=== PATIENT | male | born 1950 | race Caucasian/White ===

== ENCOUNTER 2016-11-09 17:49 | Inpatient (IN) | payer OTHER ==
[~2016-11-09] VITALS: Ht 172.7 cm; Wt 78.5 kg
--- NOTE | 2016-11-09 02:10 | NUR ---
ROUNDS PATIENT ASLEEP, NO SOB NOTED, VITALS STABLE. WILL CONTINUE TO MONITOR. Addendum: 11/10/16 at 0640 by Hawa Franklin RN WRONG ENTRY
[~2016-11-09 17:49] MED LIST: ACET-2165 PO; DIVA250T34 PO; DOCU-144 PO; DONE10TA44 PO; FAMO20TA8 PO; FURO-150 PO; LEVE500T13 PO; LISI-600 PO; MAG-55 PO; MEMA10TA12 PO; OMEP20CA10 PO; POTA20PA3 PO; SER25 PO; SERT25TA PO
--- NOTE | 2016-11-09 17:50 | NUR ---
Arrived via BLS ambulance with compliant of congestion. Patient had sylibant wheezes to ascultation. Patient to ER [facility] on EMS gurney due to lack of beds. Side rails up. Assumed care of patient.
--- NOTE | 2016-11-09 18:00 | NUR ---
ER Dr. Newman at bedside examining patient.
--- NOTE | 2016-11-09 18:02 | NUR ---
RT at bedside for breathing Tx.
[2016-11-09 18:03] VITALS: BP 140/80; PULSE 88; RESP 22; TEMP 98.5; O2SAT 96
[2016-11-09] MEDS ORDERED: NACL 0.9% 1,000 ML IV SCH (18:03)
[2016-11-09] MEDS ORDERED: ALBUTEROL SULFATE 0.083% 2.5 MG/3 ML VIAL.NEB INH ONE ×2 (18:03→18:15)
[2016-11-09] MEDS ORDERED: IPRATROPIUM BROM 0.5 MG/2.5 ML VIAL.NEB (ATROVENT) INH ONE ×2 (18:03→18:15)
[2016-11-09] MEDS ORDERED: methylPREDNISolone SOD SUCC/PF 62.5 MG/ML VIAL IVP ONE (18:15)
--- NOTE | 2016-11-09 18:17 | NUR ---
Placed in room 5 . Placed on cardiac exercise physiologist, blood pressure machine and pulse oximeter. To gown for exam. Side rails up. Assumed care of patient.
[2016-11-09 18:46] LABS: BASOPHILS # (AUTO) 0.1 K/uL (0.0-0.2); BASOPHILS % (AUTO) 0.7 % (0.0-2.0); EOSINOPHILS # (AUTO) 0.1 K/uL (0.0-0.4); EOSINOPHILS % (AUTO) 0.4 % (0.0-4.0); HEMATOCRIT 44.8 % (36-54); HEMOGLOBIN 14.7 g/dL (14.0-18.0); LYMPHOCYTES # (AUTO) 4.6 K/uL (1.0-5.5); LYMPHOCYTES % (AUTO) 28.5 % (20.5-51.5); MEAN CORPUSCULAR HEMOGLOBIN 28 pg (27-31); MEAN CORPUSCULAR HGB CONC 33 % (32-36); MEAN CORPUSCULAR VOLUME 87 fL (79.0-98.0); MONOCYTES % (AUTO) 6.4 % (1.7-9.3); NEUTROPHILS # (AUTO) 10.3 K/uL (1.8-7.7); PLATELET COUNT (AUTO) 194 K/uL (130-430); RED BLOOD CELL COUNT(AUTO) 5.18 MIL/uL (4.2-6.2); RED CELL DISTRIBUTION WIDTH 14.1 % (9.0-15.0); WHITE BLOOD COUNT (AUTO) 16.1 K/uL (4.8-10.8)
--- NOTE | 2016-11-09 19:00 | NUR ---
CARE ASSUMED, PT. UNDER NO DISTRESS, EYES CLOSED, NO COMPLAINTS OF PAIN, IV LIVE FLUSHED, VITALS STABLE
[2016-11-09 19:08] LABS: CALCIUM 8.4 mg/dL (8.4-11.0); CREATININE 1.04 mg/dL (0.55-1.30); POTASSIUM 3.7 mmol/L (3.5-5.1)
[2016-11-09 19:13] LABS: ALBUMIN 3.5 g/dL (3.4-4.8); TOTAL BILIRUBIN 0.6 mg/dL (0.0-1.0); TOTAL PROTEIN, SERUM 7.7 g/dL (6.4-8.3)
[2016-11-09] MEDS ORDERED: LEVOFLOXACIN 500 MG/D5W 100 ML IV ONE (19:15)
[2016-11-09 19:21] LABS: BLOOD GAS PH 7.417 (7.350-7.450)
[2016-11-09 19:22] LABS: ABG TOTAL HEMOGLOBIN 14.9 G/dL (12.0-18.0); BLOOD GAS BASE EXCESS -1.5 mmol/L (-3.0-3.0); BLOOD GAS COHb% 0.5 % (0.5-1.5); BLOOD O2Hb% 89.9 % (94.0-97.0)
[2016-11-09 19:23] LABS: BLOOD GAS HHB 9.1 % (0.0-6.0)
--- NOTE | 2016-11-09 19:40 | NUR ---
Patient will be admitted to care of DR. OWEN. Admitted to TELE unit. Will go to room 104. Belongings list completed. Summary report printed. Report given to JULIANA.
--- NOTE | 2016-11-09 20:44 | NUR ---
ADMADMISSION NOTE Received patient from ER via gurney under the care of Dr. Sandhu. Patient admitted with diagnosis of PNA. Patient is awake, alert to his name only, non verbal. Patient oriented to hospital room, call light, toileting, pain managemen but doesn't shows understanding. Requires total care. Call light within reach. All needs will be attended to and medical condition will be monitor closely.
[2016-11-09 20:51] VITALS: BP 117/82; PULSE 104; RESP 20; TEMP 98.2; O2SAT 94
--- NOTE | 2016-11-09 21:15 | NUR ---
NOTES PATIENT SEEN BY DR. HAMILTON WITH NEW ORDERS. WILL CONTINUE TO MONITOR.
[2016-11-09] MEDS ORDERED: DOCUSATE SODIUM 100 MG CAPSULE PO PRN (22:00)
[2016-11-09] MEDS ORDERED: MILK OF MAGNESIA 30 ML UDC PO PRN (22:00)
[2016-11-09] MEDS ORDERED: ACETAMINOPHEN 325 MG TABLET PO PRN (22:00)
[2016-11-09 22:12] VITALS: BP 117/82; PULSE 104
[2016-11-09] MEDS ORDERED: LevALBUTEROL HCL 1.25 MG/0.5 ML *CONC.* VIAL.NEB (XOPENEX CONC.) INH PRN (22:15)
[2016-11-09] MEDS ORDERED: VANCOMYCIN HCL 1 GM/NS PREMIX 250 ML IV ONE (22:45)
[2016-11-09] MEDS ORDERED: PIPERACILLIN/TAZOBACTAM 3.375 GM/VIAL (ZOSYN) IV ONE (22:52)
[2016-11-09] MEDS ORDERED: VANCOMYCIN HCL 1000 MG/VIAL IV ONE (22:56)
[2016-11-09] MEDS: KCL 20 mEq in 0.45% NS 1000 mL 1,000 ML IV SCH (22:58)
[2016-11-10] VITALS (7 sets, daily range): BP systolic 99–126; BP diastolic 49–75; PULSE 62–97; RESP 18–26; TEMP 96.6–98.4; O2SAT 95–99
--- NOTE | 2016-11-10 | NUR ---
PATIENT RESTING: Patient resting quietly. No acute distress noted. Vital signs within normal range.
[2016-11-10] MEDS: methylPREDNISolone SOD SUCC/PF 62.5 MG/ML VIAL IVP SCH ×4 (00:25→17:31)
[2016-11-10] MEDS: LevALBUTEROL HCL 1.25 MG/0.5 ML *CONC.* VIAL.NEB (XOPENEX CONC.) INH SCH ×4 (00:47→19:43)
--- NOTE | 2016-11-10 04:00 | NUR ---
PATIENT RESTING: Patient resting quietly. No acute distress noted. Vital signs within normal range.
[2016-11-10] MEDS: PIPERACILLIN/TAZO 3.375/DEX-IS 50 ML IV SCH ×4 (05:32→17:31)
--- NOTE | 2016-11-10 06:50 | NUR ---
CLOSING NOTES PATIENT AWAKE, VITALS STABLE, NO PAIN AND DISCOMFORT AT THIS TIME. ALL NEEDS ATTENDED TO. WILL ENDORSE TO INCOMING SHIFT NURSE.
[2016-11-10 07:49] LABS: BASOPHILS # (AUTO) 0.1 K/uL (0.0-0.2); BASOPHILS % (AUTO) 0.4 % (0.0-2.0); HEMATOCRIT 41.5 % (36-54); HEMOGLOBIN 13.8 g/dL (14.0-18.0); LYMPHOCYTES # (AUTO) 0.8 K/uL (1.0-5.5); LYMPHOCYTES % (AUTO) 5.8 % (20.5-51.5); MEAN CORPUSCULAR HEMOGLOBIN 30 pg (27-31); MEAN CORPUSCULAR HGB CONC 33 % (32-36); MEAN CORPUSCULAR VOLUME 89 fL (79.0-98.0); MONOCYTES # (AUTO) 0.2 K/uL (0.0-1.0); MONOCYTES % (AUTO) 1.2 % (1.7-9.3); NEUTROPHILS # (AUTO) 11.9 K/uL (1.8-7.7); NEUTROPHILS % (AUTO) 92.6 % (40.0-70.0); PLATELET COUNT (AUTO) 187 K/uL (130-430); RED BLOOD CELL COUNT(AUTO) 4.67 MIL/uL (4.2-6.2); RED CELL DISTRIBUTION WIDTH 14.6 % (9.0-15.0)
[2016-11-10 07:55] LABS: CALCIUM 8.5 mg/dL (8.4-11.0); CREATININE 1.02 mg/dL (0.55-1.30); POTASSIUM 4.6 mmol/L (3.5-5.1)
--- NOTE | 2016-11-10 08:00 | NUR ---
AM SHIFT ASSESSMENT 66YO MALE ADMITTED FOR PNEUMONIA. A/OX1, PATIENT WILL OPEN EYES AND WITHDRAW TO PAIN BUT IS NON-VERBAL BUT WILL GRUNT OR YELL; PATIENT ABLE TO MOVE UPPER EXTREMITIES LIMITED, TO SCRATCH FACE. LUNGS WITH COURSE CRACKLES TO LEFT UPPER LOBE AND WHEEZING THROUGH OUT, ON 2L NC @ 99% AND HHN Q 4HR. CARDIAC RRR, NO MURMURS OR RUBS, NSR ON TELE. BOWEL SOUNDS ACTIVE X4, SOFT AND NON-TENDER ON PALPATION, INCONTINENT OF STOOL. INCONTINENT OF BLADDER WITH YELLOW OUTPUT, NO MARTINEZ IN PLACE. PATIENT HAS BLANCHABLE REDNESS TO BUTTOCKS AND IS DIAPHORETIC THROUGHOUT, SEVERAL BLANKETS REMOVED FROM PATIENT; CLEANSE BUTTOCKS PRN AND APPLY Z-AUNG. PATIENT HAS HX OF SEIZURES WITH SIDE RAIL PADS IN PLACE AND PATIENT IN FRONT OF NURSING STATION. BED IN LOW AND LOCKED POSITION WITH CALL LIGHT IN REACH; PATIENT UNABLE TO RETURN DEMONSTRATE OR VERBALIZE UNDERSTANDING. WILL CONTINUE TO MONITOR.
[2016-11-10] MEDS: FAMOTIDINE 20 MG TABLET PO SCH (08:41)
[2016-11-10] MEDS: LISINOPRIL 20 MG TABLET PO SCH (08:41)
[2016-11-10] MEDS: DIVALPROEX SODIUM 250 MG TABLET(DEPAKOTE) PO SCH ×2 (08:41→22:18)
[2016-11-10] MEDS: levETIRAcetam 500 MG TABLET PO SCH ×2 (08:41→22:17)
[2016-11-10] MEDS: SERTRALINE HCL 50 MG TABLET PO SCH (08:42)
[2016-11-10] MEDS: POTASSIUM CHLORIDE 20 MEQ/PKT PACKET PO SCH (08:42)
[2016-11-10] MEDS: MEMANTINE HCL 5 MG TABLET PO SCH ×2 (08:42→22:18)
--- NOTE | 2016-11-10 09:31 | NUR ---
Nutrition Update Roldan Scale 15 noted. Pt admitted for pneumonia. Diet: pureed BMI: 26.8 kg/m2 RD to follow per nutrition care standards.
--- NOTE | 2016-11-10 10:00 | NUR ---
ROUNDS PATIENT BATHED AND ORAL CARE PROVIDED. PATIENT HAD LARGE LOOSE BM. Z-AUNG APPLIED TO BUTTOCKS AND PATIENT POSITION CHANGED. PATIENT TOLERATED WELL AND IS RESTING COMFORTABLY IN BED AT THIS TIME. WILL CONTINUE TO MONITOR.
[2016-11-10] MEDS: KCL 20 mEq in 0.45% NS 1000 mL 1,000 ML IV SCH (11:37)
--- NOTE | 2016-11-10 12:00 | NUR ---
ROUNDS PATIENT RESTING IN BED WITH NORMAL RISE AND FALL OF CHEST, NO GUARDING OR GRIMACING. ALL SAFETY MEASURES REMAIN IN PLACE. NO SEIZURE ACTIVITY NOTED. WILL CONTINUE TO MONITOR.
[2016-11-10] MEDS: VANCOMYCIN HCL 1,000 MG in NS 250 ML IV SCH (12:31)
--- NOTE | 2016-11-10 14:00 | NUR ---
ROUNDS PATIENT HAD ANOTHER LARGE SOFT BM AND WAS CLEANED, REPOSITIONED. PATIENT TOLERATED WELL. FAMILY AT BEDSIDE, NAD. ALL SAFETY MEASURES REMAIN IN PLACE. WILL CONTINUE TO MONITOR.
--- NOTE | 2016-11-10 16:00 | NUR ---
ROUNDS PATIENT ASLEEP IN BED WITH NORMAL RISE AND FALL OF CHEST, NAD. ALL SAFETY MEASURES REMAIN IN PLACE. WILL CONTINUE TO MONITOR.
--- NOTE | 2016-11-10 18:27 | NUR ---
CLOSING NOTE PATIENT ASLEEP IN BED WITH NORMAL RISE AND FALL OF CHEST, NAD. NO SEIZURE ACTIVITY THROUGHOUT SHIFT. ALL SAFETY MEASURES REMAIN IN PLACE. WILL ENDORSE CARE TO INFORMATICS PHYSICIAN NURSE.
--- NOTE | 2016-11-10 19:45 | NUR ---
ROUNDS PATIENT RESTING COMFORTABLY IN BED, VITALS STABLE, NO SOB NOR PAIN AND DISCOMFORT NOTED. ASSESSMENT DONE AND DOCUMENTED. SEE FLOWSHEET. NEEDS ATTENDED TO. REPOSITIONED AND MADE COMFORTABLE. SAFETY AND FALL PRECAUTION MEASURES IN PLACED. BED IN LOW AND LOCKED POSITION. CALL LIGHT PLACED WITH PATIENT.
--- NOTE | 2016-11-10 21:15 | NUR ---
MEDICATIONS DUE MEDICATIONS GIVEN SCHEDULED, CRUSHED WITH APPLESAUCE, TOLERATED WELL. WILL CONTINUE TO MONITOR.
[2016-11-10] MEDS: ENOXAPARIN SODIUM 40 MG/0.4 ML SYRINGE SUBCUT SCH (22:18)
[2016-11-10] MEDS: DONEPEZIL HCL 5 MG TABLET (ARICEPT) PO SCH (22:18)
--- NOTE | 2016-11-11 | NUR ---
PATIENT RESTING: Patient resting quietly. No acute distress noted. Vital signs within normal range.
[2016-11-11] MEDS: PIPERACILLIN/TAZO 3.375/DEX-IS 50 ML IV SCH ×5 (00:53→23:16)
[2016-11-11] MEDS: methylPREDNISolone SOD SUCC/PF 62.5 MG/ML VIAL IVP SCH ×5 (00:53→23:15)
[2016-11-11] MEDS: LevALBUTEROL HCL 1.25 MG/0.5 ML *CONC.* VIAL.NEB (XOPENEX CONC.) INH SCH ×4 (01:40→19:37)
[2016-11-11] MEDS: VANCOMYCIN HCL 1,000 MG in NS 250 ML IV SCH ×2 (01:45→12:13)
--- NOTE | 2016-11-11 02:15 | NUR ---
ROUNDS PATIENT ASLEEP, NO SOB NOTED, WILL CONTINUE TO MONITOR.
--- NOTE | 2016-11-11 04:10 | NUR ---
PATIENT RESTING: Patient resting quietly. No acute distress noted. Vital signs within normal range.
[2016-11-11 04:28] VITALS: BP 100/50; PULSE 55; RESP 18; TEMP 96; O2SAT 98
[2016-11-11] MEDS: KCL 20 mEq in 0.45% NS 1000 mL 1,000 ML IV SCH ×2 (05:25→14:00)
--- NOTE | 2016-11-11 06:48 | NUR ---
CLOSING NOTES PATIENT AWAKE, VITALS STABLE, NO SIGNS OF ANY PAIN AND DISCOMFORT NOTED. ALL NEEDS ATTENDED TO. SAFETY AND FALL PRECAUTION MEASURES MAINTAINED. WILL ENDORSE TO INCOMING SHIFT NURSE.
--- NOTE | 2016-11-11 07:30 | NUR ---
RN ROUNDS PATIENT RESTING IN BED, AWAKE, ALERT AND ORIENTED X1, REORIENTED TO PLACE, TIME AND EVENT, PATIENT IS NON VERBAL, ASSESSMENT COMPLETE, EDUCATED THE PATIENT PLASTIC PARTS FABRICATOR LIGHT SYSTEM AND TO CALL FOR ANY ASSISTANCE, PATIENT IS UNABLE TO VERBALIZED UNDERSTANDING, NO OTHER NEEDS AT THIS TIME, BED IN LOWEST POSITION, THREE SIDE RAILS UP, ASPIRATION AND SEIZURE PRECAUTIONS IN PLACE, BED CLOSE TO NURSE'S STATION.
[2016-11-11 07:36] LABS: BASOPHILS % (AUTO) 0.2 % (0.0-2.0); HEMATOCRIT 38.4 % (36-54); HEMOGLOBIN 12.8 g/dL (14.0-18.0); LYMPHOCYTES % (AUTO) 7.1 % (20.5-51.5); MEAN CORPUSCULAR HEMOGLOBIN 30 pg (27-31); MEAN CORPUSCULAR HGB CONC 33 % (32-36); MEAN CORPUSCULAR VOLUME 89 fL (79.0-98.0); MONOCYTES # (AUTO) 0.4 K/uL (0.0-1.0); MONOCYTES % (AUTO) 2.7 % (1.7-9.3); NEUTROPHILS # (AUTO) 13.4 K/uL (1.8-7.7); PLATELET COUNT (AUTO) 180 K/uL (130-430); RED BLOOD CELL COUNT(AUTO) 4.33 MIL/uL (4.2-6.2); RED CELL DISTRIBUTION WIDTH 14.4 % (9.0-15.0); WHITE BLOOD COUNT (AUTO) 14.8 K/uL (4.8-10.8)
[2016-11-11 08:01] LABS: CALCIUM 8.4 mg/dL (8.4-11.0); CREATININE 0.95 mg/dL (0.55-1.30); POTASSIUM 4.8 mmol/L (3.5-5.1)
[2016-11-11] MEDS: LISINOPRIL 20 MG TABLET PO SCH (09:00)
[2016-11-11] MEDS: levETIRAcetam 500 MG TABLET PO SCH ×2 (09:35→20:49)
[2016-11-11] MEDS: POTASSIUM CHLORIDE 20 MEQ/PKT PACKET PO SCH (09:36)
[2016-11-11] MEDS: SERTRALINE HCL 50 MG TABLET PO SCH (09:36)
[2016-11-11] MEDS: DIVALPROEX SODIUM 250 MG TABLET(DEPAKOTE) PO SCH ×2 (09:36→20:48)
[2016-11-11] MEDS: FAMOTIDINE 20 MG TABLET PO SCH (09:36)
[2016-11-11] MEDS: MEMANTINE HCL 5 MG TABLET PO SCH ×2 (09:36→20:48)
--- NOTE | 2016-11-11 09:40 | NUR ---
RN ROUNDS PATIENT RESTING IN BED, AWAKE, NO SIGN OF PAIN NOTED AT THIS TIME, CLEANED, TURNED AND REPOSITIONED PATIENT WITH ASSIST FROM DANITZA LOVE AT THIS TIME, PATIENT TOLERATED WELL, EDUCATED THE PATIENT ON MEDICATIONS, PATIENT IS UNABLE TO VERBALIZED UNDERSTANDING, CRUSHED MEDICATIONS AND ADMINISTERED WITH APPLESAUCE, ASPIRATION PRECAUTIONS IN PLACE, PATIENT TOLERATED WELL, NO OTHER NEEDS AT THIS TIME, BED IN LOWEST POSITION, THREE SIDE RAILS UP, ASPIRATION AND SEIZURE PRECAUTIONS IN PLACE, BED CLOSE TO NURSE'S STATION.
[2016-11-11 10:08] VITALS: BP 97/40; PULSE 78; RESP 16; TEMP 98.7; O2SAT 100
[2016-11-11 11:32] VITALS: BP 93/52; PULSE 110; RESP 16; TEMP 97.6; O2SAT 96
[2016-11-11 11:54] VITALS: Ht 172.7 cm; Wt 78.5 kg
--- NOTE | 2016-11-11 12:00 | NUR ---
Roldan Scale Evaluation: Patient evaluated for a low Roldan score of 11. Patient was awake, alert, oriented x 1, and received in a Hill-ROM bed. Patient is unable to turn in bed independently. Skin is fair (-); Buttocks have erythema from IAD. Recommend assist patient with repositioning every two hours with pillow support, and off-load heels and pressure areas with pillows for pressure re-distribution. Perform skin care and monitor skin integrity q shift. Place patient on a low air-loss mattress.
--- NOTE | 2016-11-11 12:23 | NUR ---
RN ROUNDS PATIENT RESTING IN BED, NO SIGNS OF PAIN NOTED, NO SIGNS OF DISTRESS AT THIS TIME, TOLERATED MEDICATION ADMINISTRATION WELL, CALLED PHARMACY REGARDING IV VANCOMYCIN PIGGYBACK LEAKING AT THIS TIME, PHARMACY TO BRING NEW BAG, WILL FOLLOW UP, BED IN LOWEST POSITION, THREE SIDE RAILS UP, FALL, ASPIRATION AND SEIZURE PRECAUTIONS IN PLACE, NAGAT SEROLOGIST AT THE BEDSIDE AT THIS TIME TO FEED PATIENT.
--- NOTE | 2016-11-11 12:41 | NUR ---
NEW BAG VANCOMYCIN RECEIVED FROM PHARMACY AND INFUSING AT THIS TIME, IV SITE IS PATENT WITH NO SIGNS OF INFILTRATION.
--- NOTE | 2016-11-11 14:30 | NUR ---
RN ROUNDS PATIENT RESTING IN BED, NO SIGNS OF PAIN NOTED, ASSISTED NAGAT UX RESEARCH ASSOCIATE TO CLEAN, TURN AND REPOSITION THE PATIENT AT THIS TIME, PATIENT TOLERATED WELL, NO OTHER NEEDS AT THIS TIME ,BED IN LOWEST POSITION, THREE SIDE RAILS UP, BED CLOSE TO NURSE'S STATION, FALL, ASPIRATION AND SEIZURE PRECAUTIONS IN PLACE, WILL CONTINUE TO MONITOR.
[2016-11-11 15:40] VITALS: BP 97/58; PULSE 136; RESP 19; TEMP 97; O2SAT 99
--- NOTE | 2016-11-11 16:52 | NUR ---
Nutrition Note Nutrition Consult received 11/11/16 0839 -- Low Roldan Score of 11. Pt was seen and assessed by RD on 11/11/16. Please refer to initial nutrition assessment under intervention for further details. RD to follow up per nutrition care policy and standards.
--- NOTE | 2016-11-11 17:06 | NUR ---
RN ROUNDS PATIENT RESTING IN BED, AWAKE, ALERT, NO SIGNS OF PAIN OR DISTRESS, TOLERATED MEDICATION ADMINISTRATION WELL, IV ANTIBIOTIC HUNG AND INFUSING WELL, IV SITE IS PATENT WITH NO SIGNS OF INFILTRATION, NO OTHER NEEDS AT THIS TIME, BED IN LOWEST POSITION, THREE SIDE RAILS UP, BED CLOSE TO NURSES'S STATION, FALL AND ASPIRATION PRECAUTIONS IN PLACE.
--- NOTE | 2016-11-11 17:40 | NUR ---
THIN LIQUIDS INFORMED BY DANITZA LOVE THAT WHILE FEEDING THE PATIENT, THE PATIENT HAS COUGHING FITS WITH THIN LIQUIDS, WILL ENDORSE TO NOC SHIFT NURSE TO ENDORSE TO DAY SHIFT NURSE TOMORROW 11/12/16 TO INFORM MAIL LIST PROCESSOR OF THIS SO THAT THE PATIENT'S DIET CAN BE MODIFIED.
--- NOTE | 2016-11-11 18:18 | NUR ---
CLOSING NOTES PATIENT RESTING IN BED ,EYES CLOSED BREATHING IS EVEN AND UNLABORED, NO SIGNS OF DISTRESS, ALL NEEDS MET, WILL ENDORSE REPORT TO NOC SHIFT NURSE, BED IN LOWEST POSITION, THREE SIDE RAILS UP, BED CLOSE TO NURSE'S STATION, FALL, ASPIRATION AND SEIZURE PRECAUTIONS IN PLACE.
[2016-11-11 19:45] VITALS: BP 125/44; PULSE 75; RESP 20; TEMP 98.2; O2SAT 96
--- NOTE | 2016-11-11 19:50 | NUR ---
PM ASSESSMENT PT. AWAKE, NON VERBAL, OPENS EYES SPONTANEOUSLY, VITAL SIGNS STABLE, NO DISTRESS NOTED, NO S/S OF PAIN OR DISCOMFORT, NO SEIZURE ACTIVITY NOTED, PADDED SIDERAILS IN PLACE, REPOSITIONED WITH PILLOW SUPPORT, WILL CONTINUE TO MONITOR.
[2016-11-11] MEDS: ENOXAPARIN SODIUM 40 MG/0.4 ML SYRINGE SUBCUT SCH (20:49)
[2016-11-11] MEDS: DONEPEZIL HCL 5 MG TABLET (ARICEPT) PO SCH (20:49)
--- NOTE | 2016-11-11 21:30 | NUR ---
IV RESTART IV TO LEFT HAND INFILTRATED, IV D'JOSHUA, COVERED WITH GAUZE. NEW IV STARTED TO R. HAND 22G, NOTED WITH GOOD BLOOD RETURN, RECONNECTED TO IVF.
--- NOTE | 2016-11-11 23:30 | NUR ---
RN ROUNDS PT. RESTING QUIETLY, VITAL SIGNS STABLE, NO DISTRESS NOTED, NO SEIZURE ACTIVITY NOTED, REPOSITIONED WITH PILLOW SUPPORT, WILL CONTINUE TO MONITOR.
[2016-11-11 23:59] VITALS: BP 114/68; PULSE 65; RESP 18; TEMP 96.8; O2SAT 97
[2016-11-12] MEDS: VANCOMYCIN HCL 1,000 MG in NS 250 ML IV SCH ×2 (00:34→14:27)
[2016-11-12] MEDS: KCL 20 mEq in 0.45% NS 1000 mL 1,000 ML IV SCH ×2 (00:35→17:17)
[2016-11-12] MEDS: LevALBUTEROL HCL 1.25 MG/0.5 ML *CONC.* VIAL.NEB (XOPENEX CONC.) INH SCH ×3 (01:06→13:28)
--- NOTE | 2016-11-12 01:30 | NUR ---
RN ROUNDS PT. RESTING QUIETLY, VITAL SIGNS STABLE, NO DISTRESS NOTED, NO SEIZURE ACTIVITY NOTED, REPOSITIONED WITH PILLOW SUPPORT, WILL CONTINUE TO MONITOR.
--- NOTE | 2016-11-12 03:30 | NUR ---
RN ROUNDS PT. RESTING QUIETLY, VITAL SIGNS STABLE, NO DISTRESS NOTED, NO SEIZURE ACTIVITY NOTED, REPOSITIONED WITH PILLOW SUPPORT, WILL CONTINUE TO MONITOR.
[2016-11-12 04:05] VITALS: BP 121/59; PULSE 51; RESP 18; TEMP 97; O2SAT 93
[2016-11-12] MEDS: PIPERACILLIN/TAZO 3.375/DEX-IS 50 ML IV SCH ×3 (05:12→17:17)
[2016-11-12] MEDS: methylPREDNISolone SOD SUCC/PF 62.5 MG/ML VIAL IVP SCH ×3 (05:12→17:22)
--- NOTE | 2016-11-12 05:30 | NUR ---
BED BATH PT. HAD A BOWEL MOVEMENT, SERVANDO CARE DONE, BED BATH DONE, NEW GOWN APPLIED, NEW LINEN APPLIED, REPOSITIONED WITH PILLOW SUPPORT.
--- NOTE | 2016-11-12 06:34 | NUR ---
CLOSING NOTES PT. RESTING QUIETLY, VITAL SIGNS STABLE, NO DISTRESS NOTED, NO S/S OF PAIN OR DISCOMFORT. NO SEIZURE ACTIVITY. ALL ANTICIPATED NEEDS MET, KEPT COMFORTABLE.
--- NOTE | 2016-11-12 07:37 | NUR ---
AM ROUNDS Patient received, awake, non verbal able to track with eyes. Respirations even and unlabored. Patient receiving breathing treatment at this time. VSS. No indications of pain at this time. IV site patent intact and infusing fluids as ordered. night monitor in place, rhythm noted. Abdomen soft and rounded. Pedal pulses equal and strong, non pitting edema noted to lower extremities at this time. Oral care and suctioning provided, scant secretions noted. Patient repositioned with pillow support. Plan of care unable to be discussed due to mental status, no family at bedside. Will continue to monitor. Safety and fall precautions in place, side rails upx3, HOB elevated. Seizure precautions in place.
[2016-11-12 07:45] LABS: BASOPHILS % (AUTO) 0.1 % (0.0-2.0); HEMATOCRIT 38.5 % (36-54); HEMOGLOBIN 12.9 g/dL (14.0-18.0); LYMPHOCYTES # (AUTO) 0.9 K/uL (1.0-5.5); LYMPHOCYTES % (AUTO) 7.4 % (20.5-51.5); MEAN CORPUSCULAR HEMOGLOBIN 30 pg (27-31); MEAN CORPUSCULAR HGB CONC 34 % (32-36); MEAN CORPUSCULAR VOLUME 88 fL (79.0-98.0); MONOCYTES # (AUTO) 0.4 K/uL (0.0-1.0); MONOCYTES % (AUTO) 3.1 % (1.7-9.3); NEUTROPHILS # (AUTO) 10.6 K/uL (1.8-7.7); NEUTROPHILS % (AUTO) 89.4 % (40.0-70.0); PLATELET COUNT (AUTO) 183 K/uL (130-430); RED BLOOD CELL COUNT(AUTO) 4.38 MIL/uL (4.2-6.2); RED CELL DISTRIBUTION WIDTH 14.5 % (9.0-15.0); WHITE BLOOD COUNT (AUTO) 11.9 K/uL (4.8-10.8)
[2016-11-12 08:00] VITALS: BP 112/80; PULSE 57; RESP 16; TEMP 97.9; O2SAT 100
[2016-11-12] MEDS: FAMOTIDINE 20 MG TABLET PO SCH (10:14)
[2016-11-12] MEDS: DIVALPROEX SODIUM 250 MG TABLET(DEPAKOTE) PO SCH ×2 (10:15→21:07)
[2016-11-12] MEDS: levETIRAcetam 500 MG TABLET PO SCH ×2 (10:15→21:08)
[2016-11-12] MEDS: MEMANTINE HCL 5 MG TABLET PO SCH ×2 (10:15→21:08)
[2016-11-12] MEDS: SERTRALINE HCL 50 MG TABLET PO SCH (10:16)
[2016-11-12] MEDS: POTASSIUM CHLORIDE 20 MEQ/PKT PACKET PO SCH (10:16)
[2016-11-12] MEDS: LISINOPRIL 20 MG TABLET PO SCH (10:20)
--- NOTE | 2016-11-12 10:41 | NUR ---
ROUNDS Patient repositioned with pillow support. Oral care and bed bath given. No acute distress noted. Will continue to monitor. Safety and fall precautions in place, side rails upx3.
--- NOTE | 2016-11-12 10:56 | NUR ---
Nutrition Note RD was notified by primary RN that pt may require nectar thick liquids as pt seemed to pocket water. RD to modify diet order for trial nectar thick liquid. RD to continue to follow per nutrition care standards.
--- NOTE | 2016-11-12 12:41 | NUR ---
ROUNDS Patient repositioned with pillow support. IV ABX infusing as ordered. No further needs at this time. Will continue to monitor. Safety and fall precautions in place.
[2016-11-12 12:45] VITALS: BP 91/49; PULSE 75; RESP 19; TEMP 98; O2SAT 97
--- NOTE | 2016-11-12 14:24 | NUR ---
ROUNDS Patient receiving breathing treatment at this time, was repositioned with pillow support. No acute distress noted or indication of pain at this time. Safety, fall, and seizure precautions in place. Will continue to monitor.
[2016-11-12 16:29] VITALS: BP 99/52; PULSE 80; RESP 18; TEMP 97.8; O2SAT 98
--- NOTE | 2016-11-12 16:32 | NUR ---
ROUNDS Patient repositioned with pillow support. No acute distress noted. Safety and fall precautions in place, will continue to monitor.
--- NOTE | 2016-11-12 17:20 | NUR ---
pm notes pt awake and alert x1, nonverbal, tracks with eyes. On 2L of O2 via nasal cannula. iv noted on right hand 22g running 1/2 NS with 20 meq KCL running at 75ml/hr. pt made comfortable. pending air mattress. fall risk precautions in place, room across nurses station. Addendum: 11/12/16 at 2245 by Preethi Mayfield RN note was for 1919
--- NOTE | 2016-11-12 18:29 | NUR ---
CLOSING NOTE Patient repositioned with pillow support. Moderate sized bowel movement noted, patient cleaned. IV site patent intact and infusing fluids as ordered. trouble clerk in place. No further needs at this time. All needs met throughout shift, safety fall and seizure precautions in place. Will endorse to next shift.
[2016-11-12] MEDS: DONEPEZIL HCL 5 MG TABLET (ARICEPT) PO SCH (21:08)
[2016-11-12] MEDS: ENOXAPARIN SODIUM 40 MG/0.4 ML SYRINGE SUBCUT SCH (21:08)
--- NOTE | 2016-11-12 22:46 | NUR ---
air mattress pt now resting on air mattress, cleaned after bowel movement. tolerated bed change well. all needs being met.
[2016-11-13] MEDS: PIPERACILLIN/TAZO 3.375/DEX-IS 50 ML IV SCH ×5 (00:07→23:34)
[2016-11-13] MEDS: methylPREDNISolone SOD SUCC/PF 62.5 MG/ML VIAL IVP SCH ×5 (00:07→23:34)
[2016-11-13 00:19] VITALS: BP 101/55; PULSE 76; RESP 17; TEMP 98.7; O2SAT 98
--- NOTE | 2016-11-13 00:30 | NUR ---
WHEEZING NOT PT WHEEZING, RT CALLED FOR BREATHING TREATMENT.
[2016-11-13] MEDS: VANCOMYCIN HCL 1,000 MG in NS 250 ML IV SCH ×2 (00:58→11:21)
[2016-11-13] MEDS: LevALBUTEROL HCL 1.25 MG/0.5 ML *CONC.* VIAL.NEB (XOPENEX CONC.) INH SCH ×5 (02:02→23:37)
--- NOTE | 2016-11-13 03:06 | NUR ---
RESTING PT RESTING, PLACED NASAL CANNULA BACK AFTER PT REMOVED IT. FREQUENT MONITORING BEING DONE. BED IN LOW POSITION. CALL LIGHT WITHIN REACH.
[2016-11-13 04:00] VITALS: BP 103/56; PULSE 72; RESP 18; TEMP 98.6; O2SAT 98
--- NOTE | 2016-11-13 04:23 | NUR ---
BED BATH PT CURRENTLY RECEIVING BED BATH FROM [facility].
--- NOTE | 2016-11-13 06:50 | NUR ---
CLOSING NOTES ALL NEEDS MET THROUGHOUT SHIFT. BREATHING TREATMENTS WERE GIVEN FOR WHEEZING. NO SOB NOTED AT THIS TIME. WILL ENDORSE CARE TO ONCOMING NURSE. BED IN LOW POSITION, CALL LIGHT WITHIN REACH, PT RESTING ON AIR MATTRESS.
--- NOTE | 2016-11-13 07:55 | NUR ---
INITIAL NOTE RECEIVED PT IN BED, NO S/S OF DISTRESS OR SOB NOTED, PT HAS NO FACIAL GRIMACING NOTED FOR PAIN, PT IN STABLE CONDITION, PT ALERT TO NAME ONLY, PROVIDED PT WITH REALITY ORIENTATION. IV CATHETER PATENT, NO SIGNS OF INFECTION OR INFILTRATION NOTED, IV FLUIDS RUNNING ORDERED, FALL, SEIZURE AND ASPIRATION PRECAUTIONS IN PLACE. BED AT LOWEST POSITION, CALL LIGHT WITHIN REACH, WILL CONTINUE TO MONITOR PT FOR ANY CHANGES. PT ON AN AIR MATTRESS. PT HAS OXYGEN 2 LITERS VIA NASAL CANNULA, SATURATION OF 95%. NOTED PT HAS RIGHT ARM DISCOLORATION.
[2016-11-13] MEDS: DIVALPROEX SODIUM 250 MG TABLET(DEPAKOTE) PO SCH ×2 (08:56→21:14)
[2016-11-13] MEDS: levETIRAcetam 500 MG TABLET PO SCH ×2 (08:57→21:14)
[2016-11-13] MEDS: POTASSIUM CHLORIDE 20 MEQ/PKT PACKET PO SCH (08:57)
[2016-11-13] MEDS: FAMOTIDINE 20 MG TABLET PO SCH (08:57)
[2016-11-13] MEDS: MEMANTINE HCL 5 MG TABLET PO SCH ×2 (08:57→21:13)
[2016-11-13] MEDS: LISINOPRIL 20 MG TABLET PO SCH (08:57)
[2016-11-13] MEDS: SERTRALINE HCL 50 MG TABLET PO SCH (09:02)
--- NOTE | 2016-11-13 10:20 | NUR ---
ROUNDS PT IN BED, NO S/S OF DISTRESS OR SOB NOTED, PT HAS NO FACIAL GRIMACING NOTED FOR PAIN AT THIS TIME, PT IN STABLE CONDITION, PT RESTING COMFORTABLY, WILL CONTINUE TO MONITOR PT FOR ANY CHANGES.
[2016-11-13] MEDS: KCL 20 mEq in 0.45% NS 1000 mL 1,000 ML IV SCH (10:27)
--- NOTE | 2016-11-13 11:40 | NUR ---
Wound Consult: Wound consult received for a low Roldan score. Patient evaluated for a low Roldan score of 13. Patient was awake, alert, oriented x 1, and received in a Hill-ROM bed with a low air-loss mattress. Patient is unable to turn in bed independently. Skin is fair (-); Buttocks have erythema from IAD. Recommend assist patient with repositioning every two hours with pillow support, and off-load heels and pressure areas with pillows for pressure re-distribution. Perform skin care and monitor skin integrity q shift. Maintain patient on a low air-loss mattress.
[2016-11-13 12:40] VITALS: BP 106/75; PULSE 53; RESP 19; TEMP 98.9; O2SAT 97
--- NOTE | 2016-11-13 12:55 | NUR ---
ROUNDS PT IN BED, NO S/S OF DISTRESS OR SOB NOTED, PT HAS NO FACIAL GRIMACING NOTED FOR PAIN, PT IN STABLE CONDITION, PT RESTING COMFORTABLY, WILL CONTINUE TO MONITOR PT FOR ANY CHANGES.
[2016-11-13 13:10] VITALS: BP 106/75; PULSE 88
--- NOTE | 2016-11-13 15:00 | NUR ---
MD ROUNDS DR HAMILTON MAKING HIS ROUNDS, AWARE OF PATIENTS CONDITION.
[2016-11-13 17:01] VITALS: BP 126/71; PULSE 100; RESP 18; TEMP 98.9; O2SAT 98
--- NOTE | 2016-11-13 18:05 | NUR ---
Closing Note PT IN BED, NO S/S OF DISTRESS OR SOB NOTED, PT HAS NO FACIAL GRIMACING NOTED FOR PAIN, PT IN STABLE CONDITION, PT ALERT TO NAME ONLY, PROVIDED PT WITH REALITY ORIENTATION. IV CATHETER PATENT, NO SIGNS OF INFECTION OR INFILTRATION NOTED, IV FLUIDS RUNNING ORDERED, FALL, SEIZURE AND ASPIRATION PRECAUTIONS IN PLACE. BED AT LOWEST POSITION, CALL LIGHT WITHIN REACH, WILL ENDORSE CARE OF PT TO INCOMING NURSE. PT ON AN AIR MATTRESS. PT HAS OXYGEN 2 LITERS VIA NASAL CANNULA, SATURATION OF 95%.
[2016-11-13 19:30] VITALS: BP 136/67; PULSE 61; RESP 20; TEMP 98.1; O2SAT 98
--- NOTE | 2016-11-13 19:30 | NUR ---
NOTE RECEIVED PT IN BED, ON AIR MATTRESS. ORIENTED TO NAME ONLY. NONVERBAL, SOB ON EXERTION NOTED. RT CALLED FOR BREATHING TREATMENT. ON O2 AT 2L VIA NASAL CANNULAR. NO ACUTE DISTRESS NOTED. VITAL SIGNS STABLE, AFEBRILE. PT IN STABLE CONDITION. IVF INFUSING WELL ON THE RT HAND, GAUGE 22, PATENT. NO SIGNS OF INFECTION OR INFILTRATION NOTED. FALL, SEIZURE AND ASPIRATION PRECAUTIONS IN PLACE. BED AT LOWEST POSITION, SIDE RAILS UP X3. CALL LIGHT WITHIN REACH. WILL CONTINUE TO MONITOR PT FOR ANY CHANGES. EDUCATED PT ON THE USE OF CALL LIGHT. PT IS UNABLE TO DEMONSTRATE OR VERBAL UNDERSTANDING. CALL LIGHT AND BEDSIDE TABLE WITHIN REACH. WILL CONTINUE TO MONITOR.
[2016-11-13] MEDS: ENOXAPARIN SODIUM 40 MG/0.4 ML SYRINGE SUBCUT SCH (21:13)
[2016-11-13] MEDS: DONEPEZIL HCL 5 MG TABLET (ARICEPT) PO SCH (21:14)
--- NOTE | 2016-11-13 22:00 | NUR ---
NOTES; INCONTINENT OF URINE AND LARGE BROWN LOOSE STOOL, TOTAL BED BATH GIVEN, LINEN CHANGED. REDNESS TO THE SERVANDO AREA NOTED, Z-GUARD SKIN BARRIER CREAM APPLIED. REPOSITIONED, SAFETY MEASURES IN PROGRESS.
--- NOTE | 2016-11-14 | NUR ---
NOTES; PT APPEARED TO BE SLEEPING, EYES CLOSED, RESPIRATION EVEN AND UNLABORED. EASILY AROUSED. NO APPARENT DISTRESS NOTED. SAFETY MEASURES IN PROGRESS. WILL CONTINUE TO MONITOR.
--- NOTE | 2016-11-14 00:35 | NUR ---
[facility]confirmed with [facility], per pharmacy okay to administer, they will make a note so [facility] sees it. Addendum: 11/14/16 at 0040 by Preethi Mayfield RN spoke with marisa
[2016-11-14] MEDS: VANCOMYCIN HCL 1,000 MG in NS 250 ML IV SCH ×2 (00:42→12:28)
[2016-11-14 01:25] VITALS: BP 148/72; PULSE 84; RESP 18; TEMP 100.2; O2SAT 97
--- NOTE | 2016-11-14 02:31 | NUR ---
NOTES; PT APPEARED TO BE SLEEPING, EYES CLOSED, RESPIRATION EVEN AND UNLABORED. EASILY AROUSED. NO APPARENT DISTRESS NOTED. SAFETY MEASURES IN PROGRESS. WILL CONTINUE TO MONITOR.
[2016-11-14] MEDS: KCL 20 mEq in 0.45% NS 1000 mL 1,000 ML IV SCH ×3 (02:43→17:20)
[2016-11-14 04:17] VITALS: BP 142/70; PULSE 82; RESP 18; TEMP 99; O2SAT 96
--- NOTE | 2016-11-14 04:30 | NUR ---
NOTES; PT APPEARED TO BE SLEEPING, EYES CLOSED, RESPIRATION EVEN AND UNLABORED. EASILY AROUSED. NO APPARENT DISTRESS NOTED. SAFETY MEASURES IN PROGRESS. WILL CONTINUE TO MONITOR.
[2016-11-14] MEDS: methylPREDNISolone SOD SUCC/PF 62.5 MG/ML VIAL IVP SCH ×3 (05:23→17:20)
[2016-11-14] MEDS: PIPERACILLIN/TAZO 3.375/DEX-IS 50 ML IV SCH ×3 (05:23→17:20)
[2016-11-14] MEDS: LevALBUTEROL HCL 1.25 MG/0.5 ML *CONC.* VIAL.NEB (XOPENEX CONC.) INH SCH ×4 (06:27→19:56)
--- NOTE | 2016-11-14 06:37 | NUR ---
NOTES; RESTING QUIETLY, EASILY AROUSED. NO S/S OF DISTRESS NOTED. VITAL SIGNS STABLE. ALL NEEDS MET THROUGHOUT SHIFT. FALL, ASPIRATION AND SEIZURE PRECAUTIONS IN PLACE, CALL LIGHT WITHIN REACH. WILL ENDORSE CARE TO ONCOMING NURSE.
--- NOTE | 2016-11-14 07:42 | NUR ---
INITIAL NOTES RECEIVED PATIENT ON BED AWAKE.BREATHING EVEN AND UNLABORED WITH O2 AT 2L/M VIA NASAL CANNULA.NO ACUTE DISTRESS.IVF INFUSING WELL;NO SIGNS AND SYMPOTMS OF INFILTRATION.SAFETY AND FALL PRECAUTIONS IN PLACE.CALL LIGHT WITHIN REACH
[2016-11-14 08:01] VITALS: BP 124/69; PULSE 67; RESP 16; TEMP 98.6; O2SAT 96
[2016-11-14] MEDS: SERTRALINE HCL 50 MG TABLET PO SCH (08:32)
[2016-11-14] MEDS: levETIRAcetam 500 MG TABLET PO SCH ×2 (08:32→21:26)
[2016-11-14] MEDS: POTASSIUM CHLORIDE 20 MEQ/PKT PACKET PO SCH (08:32)
[2016-11-14] MEDS: DIVALPROEX SODIUM 250 MG TABLET(DEPAKOTE) PO SCH ×2 (08:32→21:26)
[2016-11-14] MEDS: FAMOTIDINE 20 MG TABLET PO SCH (08:32)
[2016-11-14] MEDS: MEMANTINE HCL 5 MG TABLET PO SCH ×2 (08:32→21:26)
[2016-11-14] MEDS: LISINOPRIL 20 MG TABLET PO SCH (08:33)
--- NOTE | 2016-11-14 11:01 | NUR ---
NOTES PATIENT ON BED ASLEEP;NO ACUTE DISTRESS
--- NOTE | 2016-11-14 12:29 | NUR ---
CASE MANAGEMENT SPOKE TO DR COPELAND ABOUT DCP. [facility] EVAL ORDERED. CONTACTED FRAN @ [facility] TO EVALUATE PATIENT.
--- NOTE | 2016-11-14 12:45 | NUR ---
NOTES LUNCH SERVED;FED BY PRODUCTION CONTROL MANAGER;WITH GOOD APPETITE
[2016-11-14 12:51] VITALS: BP 118/50; PULSE 50; RESP 19; TEMP 98.7; O2SAT 97
--- NOTE | 2016-11-14 15:29 | NUR ---
NOTES PATIENT ON BED AWAKE.NO ACUTE DISTRESS;REPOSITIONING DONE;TOLERATED WELL
[2016-11-14 16:35] VITALS: BP 121/87; PULSE 67; RESP 18; TEMP 97.9; O2SAT 96
--- NOTE | 2016-11-14 18:05 | NUR ---
NOTES IV SITE CHECKED;WITH SMALL AMOUNT OF BLOOD STAIN ON THE TAPE;NO BLOOD RETURN BUT NO RESISTANCE WHEN FLUSHED WITH NORMAL SALINE.RE-INSERTED ANOTHER LINE TO LEFT HAND;SUCCESSFUL WITH FIRST ATTEMPT;WITH GOOD BLOOD RETURN;NO RESISTANCE WHEN FLUSHED WITH NS;PROCEDURE TOLERATED WELL
--- NOTE | 2016-11-14 18:31 | NUR ---
CLOSING NOTES PATIENT ON BED AWAKE.BREATHING EVEN AND UNLABORED.NO ACUTE DISTRESS.IVF INFUSING WELL;NO SIGNS AND SYMPTOMS OF INFILTRATION.SAFETY AND FALL PRECAUTIONS IN PLACE.CALL LIGHT WITHIN REACH.WILL ENDORSE TO NEXT SHIFT ACCORDINGLY
[2016-11-14 19:25] VITALS: BP 112/61; PULSE 77; RESP 20; TEMP 97.7; O2SAT 96
--- NOTE | 2016-11-14 19:25 | NUR ---
INITIAL NOTE Patient resting on the bed. No acute distress. No SOB. respiration even and unlabored noted. On O2 2L/min via NC. HOB elevated. Skin warm and dry to touch. IV intact to left hand, no redness, no swelling, no drainage. On 1/2NS with KCl 20mEq at 75ml/hr, infusing well. ELVIS mattress in placed. Safety measure maintained. Call light within reached. Padded side rails up, bed in low position. Will continue to monitor.
[2016-11-14] MEDS: DONEPEZIL HCL 5 MG TABLET (ARICEPT) PO SCH (21:25)
[2016-11-14] MEDS: ENOXAPARIN SODIUM 40 MG/0.4 ML SYRINGE SUBCUT SCH (21:25)
--- NOTE | 2016-11-14 21:30 | NUR ---
ROUND Patient resting on the bed with eyes closed. Respiration even and unlabored. No acute distress. Safety measure maintained. Bed in low position, padded side rails up. Call light within reached. Continue to monitor.
--- NOTE | 2016-11-14 23:40 | NUR ---
ROUND Patient resting on the bed with eyes closed. Respiration even and unlabored. No acute distress. Safety measure maintained. Call light within reached. Bed in low position, padded side rails up. Continue to monitor.
[2016-11-15 00:09] VITALS: BP 113/56; PULSE 76; RESP 21; TEMP 96.8; O2SAT 92
[2016-11-15] MEDS: PIPERACILLIN/TAZO 3.375/DEX-IS 50 ML IV SCH ×5 (00:14→23:35)
[2016-11-15] MEDS: methylPREDNISolone SOD SUCC/PF 62.5 MG/ML VIAL IVP SCH ×5 (00:14→23:35)
[2016-11-15] MEDS: VANCOMYCIN HCL 1,000 MG in NS 250 ML IV SCH ×2 (00:50→12:23)
[2016-11-15] MEDS: LevALBUTEROL HCL 1.25 MG/0.5 ML *CONC.* VIAL.NEB (XOPENEX CONC.) INH SCH ×3 (01:53→20:10)
--- NOTE | 2016-11-15 02:01 | NUR ---
ROUND Patient sleeping at this time. No acute distress. Receiving breathing treatment at this time. Respiration even and unlabored noted. Safety measure maintained. Bed in low position, padded side rails up. Call light within reached. Continue to monitor.
--- NOTE | 2016-11-15 03:35 | NUR ---
ROUND Patient resting on the bed. No acute distress. Continue on O2 2L/min via NC. HOB elevated. Safety measure maintained. Call light within reached. Continue to monitor.
[2016-11-15 04:17] VITALS: BP 142/96; PULSE 82; RESP 20; TEMP 97.1; O2SAT 98
--- NOTE | 2016-11-15 06:40 | NUR ---
CLOSING NOTE Patient resting on the bed. No acute distress. No SOB. respiration even and unlabored noted. On O2 2L/min via NC. HOB elevated. IV intact to left hand, no redness, no swelling, no drainage. On 1/2NS with KCl 20mEq at 75ml/hr, infusing well. ELVIS mattress in placed. All needs met. Hourly rounding during shift. Safety measure maintained. Call light within reached. Padded side rails up, bed in low position. Will endorse to morning shift nurse.
[2016-11-15 07:20] LABS: CALCIUM 7.9 mg/dL (8.4-11.0); CREATININE 0.84 mg/dL (0.55-1.30)
--- NOTE | 2016-11-15 07:20 | NUR ---
Rounds Patient is awake no sign of acute distress on RA O2 saturation 94%,denies any pain , head of bed semi fowlers aspiration precaution,safety precaution instructed, needs attended.
[2016-11-15 07:21] LABS: BASOPHILS % (AUTO) 0.1 % (0.0-2.0); HEMATOCRIT 38.9 % (36-54); HEMOGLOBIN 13.1 g/dL (14.0-18.0); LYMPHOCYTES % (AUTO) 9.4 % (20.5-51.5); MEAN CORPUSCULAR HEMOGLOBIN 29 pg (27-31); MEAN CORPUSCULAR HGB CONC 34 % (32-36); MEAN CORPUSCULAR VOLUME 88 fL (79.0-98.0); MONOCYTES # (AUTO) 0.3 K/uL (0.0-1.0); MONOCYTES % (AUTO) 2.9 % (1.7-9.3); NEUTROPHILS # (AUTO) 9.7 K/uL (1.8-7.7); NEUTROPHILS % (AUTO) 87.6 % (40.0-70.0); PLATELET COUNT (AUTO) 187 K/uL (130-430); RED BLOOD CELL COUNT(AUTO) 4.45 MIL/uL (4.2-6.2); RED CELL DISTRIBUTION WIDTH 14.1 % (9.0-15.0)
[2016-11-15] MEDS: POTASSIUM CHLORIDE 20 MEQ/PKT PACKET PO SCH (08:25)
[2016-11-15 08:30] VITALS: BP 103/45; PULSE 94; RESP 18; TEMP 96.8
[2016-11-15] MEDS: levETIRAcetam 500 MG TABLET PO SCH ×2 (08:31→22:09)
[2016-11-15] MEDS: MEMANTINE HCL 5 MG TABLET PO SCH ×2 (08:31→22:09)
[2016-11-15] MEDS: FAMOTIDINE 20 MG TABLET PO SCH (08:32)
[2016-11-15] MEDS: LISINOPRIL 20 MG TABLET PO SCH (08:32)
[2016-11-15] MEDS: DIVALPROEX SODIUM 250 MG TABLET(DEPAKOTE) PO SCH ×2 (08:32→22:10)
[2016-11-15] MEDS: SERTRALINE HCL 50 MG TABLET PO SCH (08:32)
--- NOTE | 2016-11-15 09:00 | NUR ---
Comfort/skin care Complete TSB done , mild redness buttock skin intact , perineal care given kept/dry clean skin cream barrier applied , repositioned.
[2016-11-15 12:28] VITALS: BP 101/50; PULSE 67; RESP 19; TEMP 98.4; O2SAT 100
--- NOTE | 2016-11-15 13:00 | NUR ---
PATIENT RESTING: Patient resting quietly. No acute distress noted. Vital signs within normal range.
[2016-11-15] MEDS: D5/0.45 NS 1,000 ML IV SCH (14:30)
--- NOTE | 2016-11-15 18:00 | NUR ---
Awake no sign of acute respiratory distress, tolerates po well assisted no aspiration , needs attended.
[2016-11-15 18:18] VITALS: BP 130/58; PULSE 65; RESP 21; TEMP 99; O2SAT 97
--- NOTE | 2016-11-15 19:25 | NUR ---
INITIAL NOTE Patient resting on the bed. No acute distress. No SOB. Respiration even and unlabored noted. On O2 2L/min via NC. HOB elevated. Skin warm and dry to touch. IV intact to left hand, no redness, no swelling, no drainage. On D5 1/2NS at 75ml/hr, infusing well. ELVIS mattress in placed. Safety measure maintained. Call light within reached. Padded side rails up, bed in low position. Will continue to monitor.
[2016-11-15] MEDS: ENOXAPARIN SODIUM 40 MG/0.4 ML SYRINGE SUBCUT SCH (22:09)
[2016-11-15] MEDS: DONEPEZIL HCL 5 MG TABLET (ARICEPT) PO SCH (22:10)
--- NOTE | 2016-11-15 23:20 | NUR ---
ROUND Patient resting on the bed with eyes closed. Respiration even and unlabored. No acute distress. Continue ton O2 2L/min via NC. Safety measure maintained. Call light within reached. Bed in low position, padded side rails up. Continue to monitor.
--- NOTE | 2016-11-15 23:30 | NUR ---
IV REINSERTED Noted IV not working well. A now IV inserted to right hand ,22 gauge, attempted x 1 with good blood return. Flushed with NS. Procedure tolerated well. No s/s of pain. No acute distress. Will continue to monitor.
[2016-11-16] MEDS: VANCOMYCIN HCL 1,000 MG in NS 250 ML IV SCH ×2 (00:14→12:46)
--- NOTE | 2016-11-16 01:20 | NUR ---
ROUND Patient sleeping at this time. On O2 2L/min via NC. Respiration even and unlabored. No acute distress. Safety measure maintained. Call light within reached. Bed in low position, padded side rails up. Continue to monitor.
[2016-11-16 01:49] VITALS: BP 116/77; PULSE 53; RESP 17; TEMP 96.9; O2SAT 97
--- NOTE | 2016-11-16 03:15 | NUR ---
ROUND Patient sleeping at this time. No SOB. No acute distress. Continue on O2 2L/min via NC. Safety measure maintained. Call light within reached. Bed in low position, padded side rails up. Continue to monitor.
[2016-11-16 04:26] VITALS: BP 133/85; PULSE 137; RESP 20; TEMP 96.8; O2SAT 94
--- NOTE | 2016-11-16 05:10 | NUR ---
ASSISTED BOOKING MANAGER TO CLEAN PATIENT Patient respiration even and unlabored. No acute distress. Continue on O2 2L/min via NC. Cleaned, turn and repositioned at this time. Safety measure maintained. Call light within reached. Bed in low position, padded side rails up. Continue to monitor.
[2016-11-16] MEDS: PIPERACILLIN/TAZO 3.375/DEX-IS 50 ML IV SCH ×3 (06:11→18:05)
[2016-11-16] MEDS: D5/0.45 NS 1,000 ML IV SCH ×2 (06:11→16:55)
[2016-11-16] MEDS: methylPREDNISolone SOD SUCC/PF 62.5 MG/ML VIAL IVP SCH ×2 (06:11→12:45)
--- NOTE | 2016-11-16 06:35 | NUR ---
CLOSING NOTE Patient resting on the bed. No acute distress. No SOB. Continue on O2 2L/min via NC. HOB elevated. IV intact to right hand, no redness, no swelling, no drainage. On D5 1/2NS at 75ml/hr, infusing well. ELVIS mattress in placed. All needs met. Hourly rounding during shift. Safety measure maintained. Call light within reached. Padded side rails up, bed in low position. Will endorse to morning shift nurse.
[2016-11-16] MEDS: LevALBUTEROL HCL 1.25 MG/0.5 ML *CONC.* VIAL.NEB (XOPENEX CONC.) INH SCH ×3 (07:19→19:38)
--- NOTE | 2016-11-16 08:00 | NUR ---
OPENING NOTE: RECEIVED REPORT FROM NIGHT NURSE. PATIENT IS RESTING COMFORTABLY IN BED. NO S/S OF DISTRESS OR SOB. VITALS SIGNS WNL, ASSESSMENT COMPLETE. PATIENT IS AWAKE BUT CONFUSED. AIR MATTRESS IS ON. O2 NASAL CANNULA ON 2 L IS ON. CALL LIGHT IN REACH, BED IN LOWEST POSITION, AND WILL CONTINUE TO MONITOR.
[2016-11-16 08:15] VITALS: BP 129/78; PULSE 63; RESP 17; TEMP 97.3; O2SAT 96
[2016-11-16] MEDS: DIVALPROEX SODIUM 250 MG TABLET(DEPAKOTE) PO SCH (08:41)
[2016-11-16] MEDS: LISINOPRIL 20 MG TABLET PO SCH (08:41)
[2016-11-16] MEDS: FAMOTIDINE 20 MG TABLET PO SCH (08:41)
[2016-11-16] MEDS: SERTRALINE HCL 50 MG TABLET PO SCH (08:42)
[2016-11-16] MEDS: MEMANTINE HCL 5 MG TABLET PO SCH (08:42)
[2016-11-16] MEDS: levETIRAcetam 500 MG TABLET PO SCH (08:42)
[2016-11-16] MEDS: POTASSIUM CHLORIDE 20 MEQ/PKT PACKET PO SCH (08:44)
--- NOTE | 2016-11-16 10:00 | NUR ---
note: patient is resting comfortably in bed. no s/s of distress or sob. patient is awake but confused. call light in reach, bed in lowest position, and will continue to monitor.
[2016-11-16] MEDS ORDERED: LACTOBACILLUS RHAMNOSUS GG 1 CAP CAPSULE PO ONE (11:00)
[2016-11-16 12:32] VITALS: BP 106/64; PULSE 54; RESP 19; TEMP 98.1; O2SAT 95
--- NOTE | 2016-11-16 12:42 | NUR ---
DISCHARGE PLANNING Spoke with Adalberto Heck patient accepted and will put in request for bed assignment for Adalberto Echols. SUSI Barber made aware. Addendum: 11/16/16 at 1502 by Precious Fernández DP Placed transportation packet in nurses station. Any ambulance can be arranged. Pending discharge order and bed assignment. Addendum: 11/16/16 at 1549 by Precious QUINONES Faxed referral to [facility] for possible discharge back to SNF. Called and spoke with Som in admitting patient assigned to room 216A RN to report , bed available anytime. SUSI Barber made aware. Pending discharge order. Addendum: 11/16/16 at 1650 by Precious Fernández DP ASHLEY Marquis was made aware pending discharge order back to SNF. Kandis will follow up. Addendum: 11/16/16 at 1659 by Precious Fernández DP Per ASHLEY Marquis. Called [facility] spoke with Александр arranged BLS transport pick pulling machine tender 8pm.
[2016-11-16 15:34] VITALS: BP 134/64; PULSE 80; RESP 19; TEMP 98.4; O2SAT 97
[2016-11-16 18:16] VITALS: BP 134/64; PULSE 80; RESP 19; TEMP 98.4; O2SAT 97
--- NOTE | 2016-11-16 18:29 | NUR ---
CLOSING NOTE: PATIENT IS RESTING COMFORTABLY IN BED. NO S/S OF DISTRESS OR SOB. PATIENT IS AWAKE BUT CONFUSED. AWAITING TRANSFER FOR DISCHARGE. REPORT WAS GIVEN TO KING SHREE TIRADO. CALL LIGHT IN REACH, BED IN LOWEST POSITION, AND WILL GIVE REPORT TO NIGHT NURSE.
--- NOTE | 2016-11-16 20:35 | NUR ---
RN Notes: VSS, not in any distress. Patient in stable condition, ID band removed. IV catheter removed, intact and dressing applied, no active bleeding.All belongings sent with patient. Discharge via ambulance.
[2016-11-16] MEDS ORDERED: LACTOBACILLUS RHAMNOSUS GG 1 CAP CAPSULE PO SCH (21:00)
[2016-11-16] MEDS ORDERED: PREDNISONE 20 MG TABLET PO SCH (21:00)
== END 2016-11-16 20:35 | DRG 871 ==
LOC: SED 17:49 → STU 19:40
PROVIDERS: ADMIT Family Medicine; ATTEND Family Medicine
DX: A41.9 Sepsis, unspecified organism (principal); J69.0 Pneumonitis due to inhalation of food and vomit; I10 Essential (primary) hypertension; G40.909 Epilepsy, unspecified, not intractable, without status epilepticus; F79 Unspecified intellectual disabilities; F03.90 Unspecified dementia, unspecified severity, without behavioral disturbance, psychotic disturbance, mood disturbance, and anxiety; K21.9 Gastro-esophageal reflux disease without esophagitis; Z86.73 Personal history of transient ischemic attack (TIA), and cerebral infarction without residual deficits; Z79.899 Other long term (current) drug therapy
CPT/HCPCS: 36415; 36600; 71010; 80048; 80053; 80202-TC; 82803-TC; 82962; 83605; 84484; 85025; 85610-TC; 85730-TC; 87040-TC; 87081; 93005; 94640; 94760; 96361; 96365; 96375; 99291; J1650; J1956; J2543; J2930; J3370; J3480; J7030; J7050

== ENCOUNTER 2018-08-16 21:05 | Inpatient (IN) | payer OTHER, MEDICAID ==
[~2018-08-16] VITALS: Ht 152.4 cm; Wt 70.8 kg
[2018-08-16 21:05] VITALS: BP_SYST 101
[~2018-08-16 21:05] MED LIST changes: -LEVE500T13 PO; +LEVE500T9 PO; +MEMA10TA PO; -MEMA10TA12 PO
--- NOTE | 2018-08-16 21:05 | NUR ---
ER at bedside examining patient.
--- NOTE | 2018-08-16 21:05 | NUR ---
Placed in room 2 . Placed on bus driver/monitor, blood pressure machine and pulse oximeter. To gown for exam. Side rails up. Report given to Laureen.
--- NOTE | 2018-08-16 21:08 | NUR ---
Patient brought in by ambulance BLS, from [facility] for complaint of abnormal labs WBC 12.6, BUN 11.0, and Creatinine 0.73. Per report, patient was sent by MD Sandhu for further eval. Patient is non-verbal. VSS. No acute distress noted.
[2018-08-16] MEDS ORDERED: NACL 0.9% 1,000 ML IV ONE (21:10)
[2018-08-16] MEDS ORDERED: NS 1000 ML IV.SOLN IV ONE (21:15)
[2018-08-16] MEDS ORDERED: cefTRIAXone 1 GM IVPB PREMIX 50 ML IV ONE (21:15)
[2018-08-16] MEDS ORDERED: KETOROLAC TROMETHAMINE 30 MG VIAL IVP ONE (21:15)
--- NOTE | 2018-08-16 21:30 | NUR ---
Patient is unable to participate in end of life decisions making at this time. Per copy of POLST, code status is FULL CODE. Copy of POLST placed in chart.
--- NOTE | 2018-08-16 22:11 | NUR ---
# 20 gauge angiocath placed to right hand. Use of asceptic technique. Opsite placed over site. Blood return noted. Blood for lab drawn from site. Flushed with 10 cc of normal saline. No evidence of infiltration noted. Patient tolerated well.
--- NOTE | 2018-08-16 22:20 | NUR ---
#16 FR Greco catheter with use of sterile technique. Immediate return of 10 ml yellow clody urine noted. Bedside drainage bag placed below level of bladder. Urine sample collected and sent to lab. Pt tolerated procedure well.
--- NOTE | 2018-08-16 22:25 | NUR ---
Medication reconciliation completed with information provided by facility. Any prior medication reconciliation on file was reviewed and corrected.
[2018-08-16] MEDS ORDERED: ACET-2165 PO (22:27)
[2018-08-16] MEDS ORDERED: DOCU250C14 PO (22:27)
[2018-08-16] MEDS ORDERED: MULT1CAP34 PO (22:27)
[2018-08-16] MEDS ORDERED: FAMO40TA71 PO (22:27)
[2018-08-16 22:40] LABS: ANION GAP 4 (5-15); BASOPHILS # (AUTO) 0.3 K/uL (0.0-0.2); BASOPHILS % (AUTO) 1.6 % (0.0-2.0); CHLORIDE 109 mmol/L (98-107); CREATININE 0.84 mg/dL (0.55-1.30); EOSINOPHILS # (AUTO) 0.2 K/uL (0.0-0.4); EOSINOPHILS % (AUTO) 1.3 % (0.0-4.0); GLUCOSE 158 mg/dL (70-99); HEMATOCRIT 45.3 % (36-54); HEMOGLOBIN 14.7 g/dL (14.0-18.0); LYMPHOCYTES # (AUTO) 3.6 K/uL (1.0-5.5); MEAN CORPUSCULAR HEMOGLOBIN 29 pg (27-31); MEAN CORPUSCULAR HGB CONC 32 % (32-36); MEAN CORPUSCULAR VOLUME 90 fL (79.0-98.0); NEUTROPHILS # (AUTO) 11.9 K/uL (1.8-7.7); NEUTROPHILS % (AUTO) 70.1 % (40.0-70.0); PLATELET COUNT (AUTO) 283 K/uL (130-430); POTASSIUM 3.7 mmol/L (3.5-5.1); RED BLOOD CELL COUNT(AUTO) 5.05 MIL/uL (4.2-6.2); RED CELL DISTRIBUTION WIDTH 13.4 % (9.0-15.0); SODIUM SERUM 141 mmol/L (136-145); UREA NITROGEN, BLOOD 26 mg/dL (8-21)
[2018-08-16 22:41] LABS: GFR AFRICAN AMERICAN 117 mL/min (>90)
[2018-08-16 22:45] LABS: ALANINE AMINOTRANSFERASE 47 U/L (12-78); ALBUMIN 2.8 g/dL (3.4-4.8); AMYLASE 101 U/L (0-100); ASPARTATE AMINOTRANSFERASE 15 U/L (10-37); LIPASE 100 U/L (73-393); TOTAL BILIRUBIN 0.7 mg/dL (0.0-1.0)
[2018-08-16 22:47] LABS: ALCOHOL, BLOOD < 3 mg/dL (<10)
[2018-08-16 22:54] LABS: ACETAMINOPHEN < 1 ug/mL (1-30)
[2018-08-16 22:58] LABS: PROTHROMBIN TIME 10.3 SECS (9.5-12.5)
[2018-08-16 22:58] LABS: BILIRUBIN,URINE 1+ (NEGATIVE); BLOOD, URINE 3+ (NEGATIVE); CLARITY/URINE HAZY (CLEAR); COLOR,URINE YELLOW (YELLOW); GLUCOSE,URINE NEGATIVE (NEGATIVE); KETONES,URINE TRACE (NEGATIVE); LEUKOCYTE ESTERASE ,URINE 1+ (NEGATIVE); NITRITE, URINE POSITIVE (NEGATIVE); PH,URINE 8.5 (5.0-8.0); PROTEIN URINE 3+ (NEGATIVE)
[2018-08-16 23:11] LABS: BARBITURATE, URINE NEGATIVE (NEG <=200); BENZODIAZEPINE, URINE NEGATIVE (NEG <=150); CANNABINOID, URINE NEGATIVE (NEG <=50); COCAINE, URINE NEGATIVE (NEG <=150); METHAMPHETAMINES SCREEN,URINE NEGATIVE (NEG <=500); OPIATE, URINE NEGATIVE (NEG <=100); PHENCYCLIDINE SCREEN,URINE NEGATIVE (NEG <=25); UR TRICYCLIC ANTIDEPRESSANTS NEGATIVE (NEG <=300); URINE AMPHETAMINE NEGATIVE (NEG <=500); URINE METHADONE NEGATIVE (NEG <=200); URINE OXYCODONE SCREEN NEGATIVE (NEG <=100); URINE PROPOXYPHENE SCREEN NEGATIVE (NEG <=300)
[2018-08-16 23:17] LABS: BACTERIA,URINE MANY /HPF (None Seen); RBC,URINE 20-50 /HPF (0-3)
--- NOTE | 2018-08-16 23:20 | NUR ---
Patient will be admitted to care of Dr. Sandhu. Admitted to Telemetry unit. Will go to room 104B. Belongings list completed. Summary report printed. Report will be given at bedside.
[2018-08-16 23:33] VITALS: BP_SYST 134
--- NOTE | 2018-08-16 23:33 | NUR ---
Admission Note Received patient from ER with diagnosis of PNA and diverticulitis. Oriented to room, call light, pain management and safety.
--- NOTE | 2018-08-16 23:45 | NUR ---
OPENING NOTES ADMITTED A 68 Y/O MALE FROM [facility] FOR PNEUMONIA AND DIVERTICULITIS. PATIENT NONVERBAL UNABLE TO MAKE NEEDS KNOWN. PRODUCTIVE COUGH NOTED. VITAL SIGNS STABLE. HOB ELEVATED AT 30 DEGREES. SIDE RAILS PADS PLACED FOR SEIZURE PRECAUTION. CALL LIGHT WITHIN EASY REACH. SIDE RAILS UP X3. BED ALARM ON. BED IN LOWEST LOCKED POSITION.
[2018-08-16 23:54] VITALS: BP_SYST 101
[2018-08-17] MEDS ORDERED: metroNIDAZOLE 500 mg/NS 100 ML IV ONE
[2018-08-17] MEDS: KCL 20 mEq in D5/0.45NS 1000mL 1,000 ML IV SCH ×3 (00:11→17:50)
--- NOTE | 2018-08-17 00:16 | NUR ---
IVF/ATB PATIENT STARTED ON IVF ORDERED. DUE ATB INFUSED PER MD ORDERS. IV LINE INTACT AND PATENT ON RT HAND.
[2018-08-17] MEDS ORDERED: metroNIDAZOLE 500 mg/NS 200 ML IV ONE (00:17)
--- NOTE | 2018-08-17 00:17 | NUR ---
Called [facility] about patient's flu shot status. Per [facility], patient has not received flu shot this season. Need to obtain consent from family before administering.
[2018-08-17] MEDS: LevALBUTEROL HCL 1.25 MG/0.5 ML *CONC.* VIAL.NEB (XOPENEX CONC.) INH SCH ×4 (00:41→19:02)
--- NOTE | 2018-08-17 03:37 | NUR ---
ROUNDS PATIENT RESTING IN BED. BREATHING UNLABORED. IVF INFUSING ORDERED. IV LINE INTACT. NO DISTRESS NOTED.
[2018-08-17] MEDS: metroNIDAZOLE 500 mg/NS 100 ML IV SCH ×3 (05:40→22:41)
--- NOTE | 2018-08-17 07:03 | NUR ---
CLOSING NOTES PATIENT RESTING IN BED. BREATHING UNLABORED. IVF INFUSING ORDERED WITH IV LINE INTACT. NEEDS ATTENDED. CALL LIGHT WITH IN REACH. BED ALARM ON. BED IN LOWEST LOCKED POSITION. SIDE RAILS WITH PADS AND UP X3.
--- NOTE | 2018-08-17 07:10 | NUR ---
Opening Note patient resting in bed, eyes closed, breathing unlabored on room air, IV fluids infusing at this time, symmetrical chest expansion, safety precautions in place, room close to station, will continue to monitor
[2018-08-17 07:19] LABS: ALBUMIN 2.3 g/dL (3.4-4.8); CALCIUM 8.3 mg/dL (8.4-11.0); CREATININE 0.76 mg/dL (0.55-1.30); POTASSIUM 3.6 mmol/L (3.5-5.1); TOTAL BILIRUBIN 0.6 mg/dL (0.0-1.0)
[2018-08-17 07:20] LABS: HEMATOCRIT 39.6 % (36-54); HEMOGLOBIN 12.7 g/dL (14.0-18.0); MEAN CORPUSCULAR HEMOGLOBIN 29 pg (27-31); MEAN CORPUSCULAR HGB CONC 32 % (32-36); MEAN CORPUSCULAR VOLUME 89 fL (79.0-98.0); PLATELET COUNT (AUTO) 266 K/uL (130-430); RED BLOOD CELL COUNT(AUTO) 4.44 MIL/uL (4.2-6.2); RED CELL DISTRIBUTION WIDTH 13.3 % (9.0-15.0); WHITE BLOOD COUNT (AUTO) 14.3 K/uL (4.8-10.8)
[2018-08-17 08:30] VITALS: BP_SYST 108
[2018-08-17 09:53] LABS: BAND % (MANUAL) 4 % (0-6)
[2018-08-17 09:54] LABS: ATYPICAL LYMPHOCYTES % 0 % (0-0); BASOPHILS % (MANUAL) 0 % (0-2); EOSINOPHILS % (MANUAL) 1 % (0-7); LYMPHOCYTES % (MANUAL) 19 % (20-46); MONOCYTES % (MANUAL) 8 % (0-11)
--- NOTE | 2018-08-17 10:12 | NUR ---
IV RE-INSERTION: IV disloeged. Restarted on 08/17/18. Successful after 1 attempts. Resumed current IVF of D51/2NS + 20 meQ and regulated @ 75 per hour. Will observe for any signs of infiltration.
[2018-08-17 10:19] VITALS: BP_SYST 108
--- NOTE | 2018-08-17 10:22 | NUR ---
Nutrition Update Roldan Scale 13 noted. Pt admitted for pneumonia, diverticulitis. Diet: full liquid BMI: 30.5 kg/m2 RD to follow per nutrition care standards.
[2018-08-17 12:08] VITALS: BP_SYST 97
--- NOTE | 2018-08-17 12:20 | NUR ---
Patient Assisted with Feeding at this time, tolerating diet well, vials within normal limits, occasional coughing, breathing symmetrical, safety precautions remain in place, room close to station will continue to monitor
--- NOTE | 2018-08-17 14:18 | NUR ---
Patient Had BM semi-solid stool, was cleaned and repositioned, breathing unlabored with symmetrical chest expansion, patient able to make eye-contact but non-verbal, no signs of distress, safety precautions remain in place, room close to station, will continue to monitor
--- NOTE | 2018-08-17 14:52 | NUR ---
WOUND EVALUATION: Wound Consult received from Dr. Sandhu. Thank you, Dr. Sandhu, for the consult. Patient received in a [place] Bed with an Isoflex ELVIS mattress, awake, alert, and oriented. Patient is unable to turn in bed independently. Roldan Score is a 13. Past Medical History: COPD, Hypertension, Epilepsy, Dysphagia, Cerebrovascular Accident, Dementia, Gastroesophageal Reflux Disease. Recent Labs: WBC 14.3, RBC 4.44, hemoglobin 12.7, hematocrit 39.6, chloride 110, BUN 26, creatinine 0.76, serum 8.3, albumin 2.3, PTT 24.9. Microbiology: Blood culture results 2 in progress. Urine culture results in progress. MRSA screen results in progress. Intrinsic factors that delay wound healing: COPD, dysphagia, albumin anemia. Extrinsic factors that delay wound healing: Immobility. Wound Assessment: 1. Left Buttock: Moisture associated reopened scar tissue. Site has 100% red tissue. No odor, no drainage. Periwound and surrounding tissue has scar tissue, dark discolored skin, and dry flaky skin. Site measures 0.5 cm x 1.2 cm (two small areas grouped in measurement). Recommend: Gently cleanse involved area with mild soap and water. Pat dry. Apply moisture barrier cream to site and surrounding tissue. Apply Hydraguard onto any areas of dry, flaky skin. Apply small amount of hydrogel to any open area not covered by moisture barrier cream. Cover with sacral foam dressing. Form site care daily, and as needed for dressing soiling or dislodgment. 2. Anterior Chin: Area of erythema, present on admission. Recommend: No dressing needed. Continue to monitor site for worsening condition. Contact wound care nurse if site opens or drains. 3. Right Lateral Cranial area, posterior to Ear: Dry scabs, present on admission. Site has black scab material. No odor, no drainage. Svetlana-site intact. Recommend: No dressing needed. Continue to monitor site for worsening condition. Contact wound care nurse if site opens or drains. Also recommend: Reposition patient [id number] only every 2 hours with pillow support, and off-load pressure areas with pillows for pressure re-distribution. Offload, elevate and float bilateral heels with one pillow lengthwise under each extremity at all times. Perform skin care and monitor skin integrity Q shift. Use moisture barrier cream on buttocks and other moisture susceptible areas QID and as needed for soiling. Place patient on a low air-loss mattress.
--- NOTE | 2018-08-17 14:59 | NUR ---
Modesta Stark at this time, site remains patent, patient resting in bed, positioned with pillow support, HOB remains elevated, gastelum draining via gravity and in tact, safety precautions remain in place, room close to station, will continue to monitor
[2018-08-17 16:00] VITALS: BP_SYST 119
--- NOTE | 2018-08-17 17:10 | NUR ---
D/C Patient Patient given medication reconciliation form and D/C instructions. Exit Care provided. Patient verbalized understanding. MD discussed with patient the results and treatment provided. Ambulatory with steady gait for discharge to home. Patient in stable condition, ID band removed. IV catheter removed, intact and dressing applied, no active bleeding. Rx of [place] given prior to patient's surgery by Dr. Mayo. Patient educated on pain management. All belongings sent with patient. Addendum: 08/17/18 at 1819 by Lisa Pearson RN Wrong patient, disregard
--- NOTE | 2018-08-17 18:05 | NUR ---
Dr. Sandhu Rounds at this time, informed him about dark colored urine, verbalized understanding, stated will reconcile medications, asked for DVT prophylaxis, stated will place in orders
[2018-08-17] MEDS ORDERED: DOCUSATE SODIUM 100 MG CAPSULE PO SCH (18:15)
[2018-08-17] MEDS ORDERED: DOCUSATE SODIUM 250 MG CAPSULE PO PRN (18:15)
[2018-08-17] MEDS ORDERED: ACETAMINOPHEN 325 MG TABLET PO PRN (18:15)
[2018-08-17] MEDS ORDERED: ACETAMINOPHEN 325 MG TABLET PO SCH (18:15)
--- NOTE | 2018-08-17 18:15 | NUR ---
Patient had BM was cleansed and repositioned with help from Chao LOVE, wound care provided again, no signs of distress, occasional coughing, safety precautions remain in place, room close to nurses' station, will continue to monitor patient
--- NOTE | 2018-08-17 19:15 | NUR ---
Closing Note patient resting in bed, awake and alert, non-verbal, IV fluids infusing at this time, he is positioned with pillow support, HOB elevated, gastelum draining via gravity, safety precautions remain in place, room close to station, endorsed to stock layer nurse
[2018-08-17 20:00] VITALS: BP_SYST 112
--- NOTE | 2018-08-17 20:00 | NUR ---
Initial Notes Received patient resting in bed, awake, alert, confused, nonverbal. Patient appears in no acute distress or pain at this time. Vital signs stable. Breathing is even and unlabored. IV site patent/clean/dry. Greco draining to gravity. Dressings clean/dry/intact, recently changed by prior shift. Repositioned patient for comfort. Needs addressed. Fall precautions in place, will continue to monitor.
[2018-08-17] MEDS: MEMANTINE HCL 5 MG TABLET PO SCH (20:53)
[2018-08-17] MEDS: levETIRAcetam 500 MG TABLET PO SCH (20:53)
[2018-08-17] MEDS: DONEPEZIL HCL 5 MG TABLET (ARICEPT) PO SCH (20:53)
--- NOTE | 2018-08-17 22:00 | NUR ---
Nursing Notes Patient resting in bed, awake, no change in mentation. Patient appears in no acute distress or pain. Breathing is even and unlabored. IV site patent/clean/dry. Greco draining to gravity. Repositioned patient for comfort. Needs addressed. Call light in hand, fall precautions in place.
[2018-08-18] VITALS: BP_SYST 118; BP_SYST 144
--- NOTE | 2018-08-18 | NUR ---
Nursing Notes Patient resting in bed, awake. Patient appears in no acute distress or pain at this time. Breathing is even and unlabored. IV site patent/clean/dry. Greco draining to gravity. Needs addressed. Call light in hand, fall precautions in place.
[2018-08-18] MEDS: LevALBUTEROL HCL 1.25 MG/0.5 ML *CONC.* VIAL.NEB (XOPENEX CONC.) INH SCH ×3 (00:50→19:36)
--- NOTE | 2018-08-18 02:15 | NUR ---
Nursing Notes Patient resting in bed with eyes closed. No distress noted, breathing is even and unlabored. IV site patent/clean/dry. Fall precautions in place, will continue to monitor for changes and safety.
--- NOTE | 2018-08-18 04:43 | NUR ---
Nursing Notes Patient resting in bed with eyes closed, easily aroused, no change in mentation. Patient appears in no acute distress or pain at this time. Breathing is even and unlabored. Hygiene care provided. Dressing remains clean/dry/intact. Repositioned patient for comfort. Needs addressed. Fall precautions in place.
[2018-08-18] MEDS: metroNIDAZOLE 500 mg/NS 100 ML IV SCH ×3 (05:08→22:42)
--- NOTE | 2018-08-18 06:43 | NUR ---
Closing Notes Patient resting in bed with eyes closed, easily aroused, no change to mentation. Patient appears in no acute distress or pain at this time. Breathing is even and unlabored. IV site patent/clean/dry, no S/S infection/infiltration noted. Greco draining yellow urine to gravity. Dressing remains clean/dry/intact. Needs addressed throughout shift. Call light in hand, fall precautions in place. Will continue to monitor for changes and safety, and endorse all patient care/needs to oncoming nurse.
[2018-08-18 06:44] LABS: CALCIUM 8.6 mg/dL (8.4-11.0); CREATININE 0.67 mg/dL (0.55-1.30); PHOSPHORUS 2.7 mg/dL (2.7-4.5); POTASSIUM 4.1 mmol/L (3.5-5.1)
[2018-08-18 07:28] LABS: HEMATOCRIT 40.3 % (36-54); HEMOGLOBIN 12.9 g/dL (14.0-18.0); MEAN CORPUSCULAR HEMOGLOBIN 29 pg (27-31); MEAN CORPUSCULAR HGB CONC 32 % (32-36); MEAN CORPUSCULAR VOLUME 90 fL (79.0-98.0); PLATELET COUNT (AUTO) 267 K/uL (130-430); RED BLOOD CELL COUNT(AUTO) 4.49 MIL/uL (4.2-6.2); RED CELL DISTRIBUTION WIDTH 13.2 % (9.0-15.0); WHITE BLOOD COUNT (AUTO) 10.8 K/uL (4.8-10.8)
[2018-08-18 08:00] VITALS: BP_SYST 106
--- NOTE | 2018-08-18 08:00 | NUR ---
RN OPENING NOTE PATIENT RESTING ON BED, OPEN EYES BUT NON VERBAL. PATIENT SHOWS NO SIGNS OF PAIN ON FLACC SCALE. PATIENT WAS ASSESSED , VITAL SIGNS ARE STABLE. PATIENT HAS A BOWEL MOVEMENT OF LOOSE STOOL. PATIENT WAS CHANGED HIS LINEN WAS CHANGED , PATIENT WAS REPOSITIONED, BED AT LOW POSITION AND BED ALARM IS ON, I'M BEING PRESENT IN THE ROOM ALL THE TIME, SINCE i'M A SITTER FOR ANOTHER PATIENT, SO WILL KEEP CLOSE EYE ON THE PATIENT, WILL CONTINUE TO MONITOR.
[2018-08-18] MEDS: levETIRAcetam 500 MG TABLET PO SCH ×2 (08:50→21:53)
[2018-08-18] MEDS: FAMOTIDINE 20 MG TABLET PO SCH (08:52)
[2018-08-18] MEDS: LISINOPRIL 20 MG TABLET PO SCH (08:52)
[2018-08-18] MEDS: MEMANTINE HCL 5 MG TABLET PO SCH ×2 (08:53→21:53)
[2018-08-18] MEDS: ENOXAPARIN SODIUM 40 MG/0.4 ML SYRINGE SUBCUT SCH (08:53)
--- NOTE | 2018-08-18 10:00 | NUR ---
RN NOTE PATIENT RESTING ON BED, PATIENT WAS GIVEN HIS MEDICATION, NO PAIN OR DISCOMFORT PER FLACC SCALE. WILL KEEP MONITORING,
[2018-08-18 11:01] LABS: BASOPHILS % (MANUAL) 0 % (0-2); EOSINOPHILS % (MANUAL) 2 % (0-7); LYMPHOCYTES % (MANUAL) 16 % (20-46); MONOCYTES % (MANUAL) 10 % (0-11)
--- NOTE | 2018-08-18 12:00 | NUR ---
RN NOTE PATIENT RESTING ON BED OPEN EYES, FLACC SCALE SHOWS NO PAIN OR DISCOMFORT. PATIENT WAS SERVED HIS LUNCH AND WAS FED ALL HIS MEAL INCLUDING THE ENSURE AND THE MILD. PATIENT HAS A BM AND WAS CHANGED, PATIENT WAS REPOSITIONED. BED AT LOW POSITION AND CALL LIGHT WITHIN REACH, WILL CONTINUE TO DO ROUNDING ON THE PATIENT.
[2018-08-18 12:05] VITALS: BP_SYST 124
--- NOTE | 2018-08-18 14:00 | NUR ---
RN NOTE PATIENT WAS REPOSITIONED, PATIENT WAS GIVEN HIS IVPB OF FLAGYL, ACCORDING TO FLACC SCALE PATIENT HAS NO PAIN OR DISCOMFORT. WILL CONTINUE TO MONITOR.
[2018-08-18] MEDS: KCL 20 mEq in D5/0.45NS 1000mL 1,000 ML IV SCH (14:33)
--- NOTE | 2018-08-18 16:00 | NUR ---
RN NOTE PATIENT WAS REPOSITIONED CLEANED AFTER HIS BM, PATIENT'S SACRAL WOUND WAS CHANGED ACCORDING TO THE WOUND CARE ORDER. PATIENT TOLERATED VERY WELL. WILL CONTINUE TO MONITOR.
[2018-08-18 16:10] VITALS: BP_SYST 135
--- NOTE | 2018-08-18 18:00 | NUR ---
RN CLOSING NOTE PATIENT RESTING ON BED, FLACC SCALE SHOWS HE IS IN NO DISTRESS. PATIENT IVF WAS CLEARED FROM SOME AIR BUBBLES. PATIENT WAS FED HIS DINNER, PATIENT ATE 100% OF HIS DIET. HE LIKED THE ICE CREAM AND THE ENSURE, TOLERATED HIS DIET. PATIENT IVF RUNNING PRESCRIBED. BED AT LOW POSITION AND BED ALARM ON, WILL CONTINUE TO MONITOR AND WILL ENDORSE TO NEXT SHIFT.
--- NOTE | 2018-08-18 19:54 | NUR ---
Initial note: Received handoff report from dayshift RN. Patient is awake and non-verbal, no acute distress noted. IV noted to patient's left forearm, site is patent and benign with IV fluids infusing well. Greco catheter noted draining clear yellow urine to gravity. Safety, fall, and seizure precautions in place. Call light is with patient. Will continue with plan of care.
[2018-08-18 20:00] VITALS: BP_SYST 132
[2018-08-18] MEDS: DONEPEZIL HCL 5 MG TABLET (ARICEPT) PO SCH (21:54)
--- NOTE | 2018-08-18 22:04 | NUR ---
Rounds: Patient is asleep in bed, does not show any signs or symptoms of acute distress. Patient's breathing is even and unlabored on room air. IV antibiotics currently infusing, IV site shows no infiltration. Call light is with patient. Safety, fall precautions in place. Will continue to monitor.
[2018-08-19] VITALS (9 sets, daily range): BP systolic 97–132
--- NOTE | 2018-08-19 00:17 | NUR ---
Rounds: Patient is resting in bed with eyes closed. No acute distress noted. Respirations are unlabored with even chest rise and fall IV fluids infusing well, IV site is patent and benign. Greco catheter draining clear yellow urine to gravity. Call light is with patient. Will continue to monitor.
[2018-08-19] MEDS: KCL 20 mEq in D5/0.45NS 1000mL 1,000 ML IV SCH ×2 (01:07→13:09)
[2018-08-19] MEDS: LevALBUTEROL HCL 1.25 MG/0.5 ML *CONC.* VIAL.NEB (XOPENEX CONC.) INH SCH ×4 (02:16→19:46)
--- NOTE | 2018-08-19 02:41 | NUR ---
Rounds: Patient is sleeping in bed. Does not show any signs or symptoms of acute distress. IV fluids infusing well to patient's IV site. Greco catheter draining well to gravity. Call light is with patient. Will continue to monitor.
--- NOTE | 2018-08-19 04:32 | NUR ---
Rounds: Patient is resting in bed with eyes closed. Does not show any signs or symptoms of acute distress. Provided oral suction. Safety, fall and seizure precautions in place. Will continue to monitor.
[2018-08-19] MEDS: metroNIDAZOLE 500 mg/NS 100 ML IV SCH ×2 (05:04→13:07)
--- NOTE | 2018-08-19 06:24 | NUR ---
Closing note: Patient is sleeping in bed. No acute distress noted. Patient's breathing remains even and unlabored on room air. All needs met and attended to. Safety, seizure and fall precautions observed throughout shift. Will endorse care to dayshift RN.
--- NOTE | 2018-08-19 07:32 | NUR ---
OPENING NOTE PT LAYING IN BED WITH EYES CLOSED, EQUAL CHEST RISE NOTED. CALL LIGHT VISIBLY WITHIN REACH. NO DISTRESS NOTED. BED ALARM IN PLACE WITH BED IN THE LOWEST POSITION.
[2018-08-19] MEDS: FAMOTIDINE 20 MG TABLET PO SCH (08:29)
[2018-08-19] MEDS: levETIRAcetam 500 MG TABLET PO SCH (08:31)
[2018-08-19] MEDS: MEMANTINE HCL 5 MG TABLET PO SCH (08:32)
[2018-08-19] MEDS: LISINOPRIL 20 MG TABLET PO SCH (08:32)
[2018-08-19] MEDS: ENOXAPARIN SODIUM 40 MG/0.4 ML SYRINGE SUBCUT SCH (08:39)
--- NOTE | 2018-08-19 08:52 | NUR ---
AM MEDS MORNING MEDS GIVE. PT TOLERATED WELL, NO DISTRESS NOTED. SAFETY MAINTAINED.
--- NOTE | 2018-08-19 11:00 | NUR ---
pt laying in bed awake. no distress noted. call light visibly within reach. safety maintained.
--- NOTE | 2018-08-19 13:14 | NUR ---
med pass ivpb flagyll given at this time. new ivf also hung. no distress noted.
--- NOTE | 2018-08-19 13:59 | NUR ---
wound care sacral wound cleaned with mild soap and water, and patted dry. z-guard applied. new foam dressing placed.
--- NOTE | 2018-08-19 16:00 | NUR ---
pt laying in bed with eyes open nonverbal. no distress noted. safety maintained.
--- NOTE | 2018-08-19 16:44 | NUR ---
dr rich made aware of pt urine culture resistance to Levaquin- pt currently on levaquin. stated he will take a look at orders.
[2018-08-19] MEDS ORDERED: cefTRIAXone 1 GM in D5W 50 ML IV SCH (17:00)
--- NOTE | 2018-08-19 17:49 | NUR ---
D/C Planning CM rec'd d/c order from Dr. Sandhu. Patient and family agreeable to d/c. Transport set up with [facility] at [facility] for 19:45 which was the earliest time. Room number to be given when RN calls in report to [phone]. Packet left at the nursing station. Addendum: 08/19/18 at 1812 by Roxana Montero RN Pt is going to 114-C
--- NOTE | 2018-08-19 17:54 | NUR ---
CALLED [facility] RE: TRANSFER BACK TO THE FACILITY. AWAITING FROM NURSING ALL TERRAIN VEHICLE TECHNICIAN FOR CONFIRMATION OF BED ASSIGNEMENT. SPOKE TO BASSEM, NURSING ALL TERRAIN VEHICLE TECHNICIAN WHO WILL CALL BACK.
--- NOTE | 2018-08-19 18:44 | NUR ---
report given to meera lind to go to room 114 c
--- NOTE | 2018-08-19 20:05 | NUR ---
CALLED [facility] FOR AN UPDATED ETA, WAS INFORMED THAT THE NO ARRANGEMENT WAS CALLED.
--- NOTE | 2018-08-19 20:18 | NUR ---
ARRANGED TRANSPORT THROUGH [facility] ([phone]). SPOKE WITH TYLOR, PATIENT WILL BE GOING TO [facility] ROOM 114C. CHIEF TALENT OFFICER WILL BE AT [phone].
--- NOTE | 2018-08-19 20:34 | NUR ---
[facility] ARRIVED TO TRANSPORT PATIENT, THEY CONFIRMED THE PATIENT WAS IN THEIR SYSTEM AND THAT THEY ARE TRANSFERRING THE PATIENT TO [facility] ROOM 114C.
--- NOTE | 2018-08-19 20:35 | NUR ---
PT TRANSFERRED Report given to [facility] at [facility] by jazzy RAMIREZ. Transfer packet with Transfer Orders and Medication Reconciliation form given to EMT with report. Exitcare provided. [facility] ID band removed, replaced with ID band with pt's name and . IV catheter to left forearm intact and Greco catheter D/C'd per transfer facility request. All belongings sent with patient. Patient left floor via gurney escorted by EMT in no distress.
--- NOTE | 2018-08-19 20:40 | NUR ---
CANCELLED AMBULANCE WITH [facility] CALLED [facility] ([phone]) SPOKE WITH ARIES SNIDER ARRANGEMENT FOR [facility].
== END 2018-08-19 20:40 | DRG 871 ==
LOC: SED 21:05 → STU 23:09
PROVIDERS: ADMIT Family Medicine; ATTEND Family Medicine
DX: A41.9 Sepsis, unspecified organism (principal); J69.0 Pneumonitis due to inhalation of food and vomit; N39.0 Urinary tract infection, site not specified; K57.92 Diverticulitis of intestine, part unspecified, without perforation or abscess without bleeding; G40.909 Epilepsy, unspecified, not intractable, without status epilepticus; F03.90 Unspecified dementia, unspecified severity, without behavioral disturbance, psychotic disturbance, mood disturbance, and anxiety; J44.9 Chronic obstructive pulmonary disease, unspecified; K21.9 Gastro-esophageal reflux disease without esophagitis; N18.9 Chronic kidney disease, unspecified; K59.00 Constipation, unspecified; I12.9 Hypertensive chronic kidney disease with stage 1 through stage 4 chronic kidney disease, or unspecified chronic kidney disease; Z86.73 Personal history of transient ischemic attack (TIA), and cerebral infarction without residual deficits; Z79.899 Other long term (current) drug therapy
CPT/HCPCS: 36415; 36600; 71045; 80048; 80053; 80307; 81000-TC; 82150-TC; 82550-TC; 82803-TC; 83605; 83690-TC; 83735-TC; 84100-TC; 84484; 85007; 85025; 85027; 85610-TC; 85730-TC; 87040-TC; 87081; 87086; 87186-TC; 93005; 94640; 94760; 96361; 96365; 96375; 99285; G0378; G0480; G0481; G0482; J0696; J1650; J1885; J1956; J3490; J7030; J7060; J7612

== ENCOUNTER 2019-02-03 11:29 | Inpatient (IN) | payer OTHER, MEDICAID ==
[~2019-02-03] VITALS: Ht 167.6 cm; Wt 68.9 kg
[~2019-02-03 11:29] MED LIST changes: -DIVA250T34 PO; +DOCU250C14 PO; -FAMO20TA8 PO; +FAMO40TA71 PO; -FURO-150 PO; +MULT1CAP34 PO; -OMEP20CA10 PO; -POTA20PA3 PO; -SER25 PO; -SERT25TA PO
[2019-02-03 11:43] VITALS: BP_SYST 124
[2019-02-03 12:23] LABS: BASOPHILS # (AUTO) 0.2 K/uL (0.0-0.2); BASOPHILS % (AUTO) 1.6 % (0.0-2.0); EOSINOPHILS # (AUTO) 0.6 K/uL (0.0-0.4); EOSINOPHILS % (AUTO) 4.3 % (0.0-4.0); HEMATOCRIT 47.7 % (36-54); HEMOGLOBIN 15.7 g/dL (14.0-18.0); LYMPHOCYTES # (AUTO) 4.9 K/uL (1.0-5.5); LYMPHOCYTES % (AUTO) 34.9 % (20.5-51.5); MEAN CORPUSCULAR HEMOGLOBIN 30 pg (27-31); MEAN CORPUSCULAR HGB CONC 33 % (32-36); MEAN CORPUSCULAR VOLUME 91 fL (79.0-98.0); MONOCYTES # (AUTO) 1.3 K/uL (0.0-1.0); MONOCYTES % (AUTO) 9.3 % (1.7-9.3); NEUTROPHILS % (AUTO) 49.9 % (40.0-70.0); PLATELET COUNT (AUTO) 271 K/uL (130-430); RED BLOOD CELL COUNT(AUTO) 5.24 MIL/uL (4.2-6.2); RED CELL DISTRIBUTION WIDTH 14.1 % (9.0-15.0)
[2019-02-03 12:32] LABS: BILIRUBIN,URINE NEGATIVE (NEGATIVE); BLOOD, URINE NEGATIVE (NEGATIVE); CLARITY/URINE CLEAR (CLEAR); COLOR,URINE YELLOW (YELLOW); GLUCOSE,URINE NEGATIVE (NEGATIVE); KETONES,URINE NEGATIVE (NEGATIVE); LEUKOCYTE ESTERASE ,URINE NEGATIVE (NEGATIVE); NITRITE, URINE NEGATIVE (NEGATIVE); PROTEIN URINE NEGATIVE (NEGATIVE); UROBILINOGEN,URINE 0.2 (0.2-1.0)
[2019-02-03 12:45] LABS: CALCIUM 9.1 mg/dL (8.4-11.0); CREATININE 0.76 mg/dL (0.55-1.30); POTASSIUM 4.4 mmol/L (3.5-5.1)
[2019-02-03 12:49] LABS: PROTHROMBIN TIME 9.8 SECS (9.5-12.5)
[2019-02-03 12:50] LABS: TOTAL BILIRUBIN 0.7 mg/dL (0.0-1.0)
[2019-02-03] MEDS ORDERED: IPRATROPIUM/ALBUTEROL SULFATE 3 ML AMPUL.NEB (DUONEB) ONE (13:01)
[2019-02-03] MEDS ORDERED: IPRATROPIUM/ALBUTEROL SULFATE 3 ML AMPUL.NEB (DUONEB) INH ONE (13:30)
[2019-02-03] MEDS ORDERED: NACL 0.9% 1,000 ML IV ONE ×2 (13:45→15:45)
[2019-02-03] MEDS ORDERED: cefTRIAXone 1 GM in D5W 50 ML IV ONE (13:45)
[2019-02-03] MEDS ORDERED: VANCOMYCIN HCL 1,000 MG in NS 250 ML IV ONE (13:45)
[2019-02-03] MEDS ORDERED: cefTRIAXone 1 GM VIAL ONE (15:07)
[2019-02-03] MEDS ORDERED: VANCOMYCIN HCL 1000 MG/VIAL IV ONE (15:07)
[2019-02-03 17:34] VITALS: BP_SYST 102
[2019-02-03] MEDS ORDERED: ACETAMINOPHEN 325 MG TABLET PO PRN (18:30)
[2019-02-03] MEDS ORDERED: LevALBUTEROL HCL 1.25 MG/0.5 ML *CONC.* VIAL.NEB (XOPENEX CONC.) INH PRN (18:30)
[2019-02-03] MEDS ORDERED: DOCUSATE SODIUM 250 MG CAPSULE PO SCH (18:30)
[2019-02-03] MEDS ORDERED: ACETAMINOPHEN 325 MG TABLET PO SCH (18:30)
[2019-02-03] MEDS ORDERED: DOCUSATE SODIUM 250 MG CAPSULE PO PRN (18:30)
[2019-02-03] MEDS ORDERED: KCL 20 mEq in D5/0.45NS 1000mL 1,000 ML IV ONE (19:02)
[2019-02-03 20:00] VITALS: BP_SYST 105
[2019-02-03] MEDS: KCL 20 mEq in D5/0.45NS 1000mL 1,000 ML IV SCH (20:25)
[2019-02-03] MEDS: LevALBUTEROL HCL 1.25 MG/0.5 ML *CONC.* VIAL.NEB (XOPENEX CONC.) INH SCH (20:28)
[2019-02-03] MEDS: DONEPEZIL HCL 5 MG TABLET (ARICEPT) PO SCH (20:49)
[2019-02-03] MEDS: FAMOTIDINE 20 MG TABLET PO SCH (20:49)
[2019-02-03] MEDS: MEMANTINE HCL 5 MG TABLET PO SCH (20:50)
[2019-02-03] MEDS: cefTRIAXone 1 GM in D5W 50 ML IV SCH (21:00)
[2019-02-03] MEDS ORDERED: AZITHROMYCIN 500 MG/VIAL (ZITHROMAX) IV ONE (21:12)
[2019-02-03] MEDS: AZITHROMYCIN 500 MG in NS 250 ML IV SCH (21:25)
[2019-02-04] VITALS (7 sets, daily range): BP systolic 98–128
[2019-02-04] MEDS: LevALBUTEROL HCL 1.25 MG/0.5 ML *CONC.* VIAL.NEB (XOPENEX CONC.) INH SCH ×4 (02:21→19:59)
[2019-02-04] MEDS: KCL 20 mEq in D5/0.45NS 1000mL 1,000 ML IV SCH ×2 (04:48→12:46)
[2019-02-04] MEDS: MEMANTINE HCL 5 MG TABLET PO SCH ×2 (08:43→21:39)
[2019-02-04] MEDS: FAMOTIDINE 20 MG TABLET PO SCH (08:43)
[2019-02-04] MEDS: ENOXAPARIN SODIUM 40 MG/0.4 ML SYRINGE SUBCUT SCH (08:45)
[2019-02-04] MEDS: LISINOPRIL 20 MG TABLET PO SCH (09:00)
[2019-02-04] MEDS: cefTRIAXone 1 GM in D5W 50 ML IV SCH (21:38)
[2019-02-04] MEDS: AZITHROMYCIN 500 MG in NS 250 ML IV SCH (21:39)
[2019-02-04] MEDS: DONEPEZIL HCL 5 MG TABLET (ARICEPT) PO SCH (21:39)
[2019-02-05] MEDS: LevALBUTEROL HCL 1.25 MG/0.5 ML *CONC.* VIAL.NEB (XOPENEX CONC.) INH SCH ×4 (00:59→20:16)
[2019-02-05] MEDS: KCL 20 mEq in D5/0.45NS 1000mL 1,000 ML IV SCH ×2 (06:30→20:52)
[2019-02-05 06:56] LABS: BASOPHILS # (AUTO) 0.1 K/uL (0.0-0.2); BASOPHILS % (AUTO) 0.7 % (0.0-2.0); EOSINOPHILS # (AUTO) 0.4 K/uL (0.0-0.4); EOSINOPHILS % (AUTO) 3.9 % (0.0-4.0); HEMOGLOBIN 15.2 g/dL (14.0-18.0); LYMPHOCYTES # (AUTO) 3.4 K/uL (1.0-5.5); LYMPHOCYTES % (AUTO) 32.4 % (20.5-51.5); MEAN CORPUSCULAR HEMOGLOBIN 30 pg (27-31); MEAN CORPUSCULAR HGB CONC 33 % (32-36); MEAN CORPUSCULAR VOLUME 92 fL (79.0-98.0); MONOCYTES # (AUTO) 0.9 K/uL (0.0-1.0); MONOCYTES % (AUTO) 8.7 % (1.7-9.3); NEUTROPHILS # (AUTO) 5.7 K/uL (1.8-7.7); NEUTROPHILS % (AUTO) 54.3 % (40.0-70.0); PLATELET COUNT (AUTO) 233 K/uL (130-430); RED BLOOD CELL COUNT(AUTO) 5.02 MIL/uL (4.2-6.2); RED CELL DISTRIBUTION WIDTH 13.8 % (9.0-15.0); WHITE BLOOD COUNT (AUTO) 10.5 K/uL (4.8-10.8)
[2019-02-05 07:33] LABS: CALCIUM 9.4 mg/dL (8.4-11.0); CREATININE 0.76 mg/dL (0.55-1.30); POTASSIUM 4.3 mmol/L (3.5-5.1)
[2019-02-05 08:14] VITALS: BP_SYST 125
[2019-02-05] MEDS: MEMANTINE HCL 5 MG TABLET PO SCH ×2 (08:15→20:44)
[2019-02-05] MEDS: LISINOPRIL 20 MG TABLET PO SCH (08:15)
[2019-02-05] MEDS: FAMOTIDINE 20 MG TABLET PO SCH (08:16)
[2019-02-05] MEDS: ENOXAPARIN SODIUM 40 MG/0.4 ML SYRINGE SUBCUT SCH (08:16)
[2019-02-05 12:02] VITALS: BP_SYST 110
[2019-02-05 16:02] VITALS: BP_SYST 104
[2019-02-05 19:16] VITALS: BP_SYST 119
[2019-02-05] MEDS: DONEPEZIL HCL 5 MG TABLET (ARICEPT) PO SCH (20:44)
[2019-02-05] MEDS: AZITHROMYCIN 500 MG in NS 250 ML IV SCH (20:45)
[2019-02-05] MEDS: cefTRIAXone 1 GM in D5W 50 ML IV SCH (20:48)
[2019-02-06] MEDS: LevALBUTEROL HCL 1.25 MG/0.5 ML *CONC.* VIAL.NEB (XOPENEX CONC.) INH SCH ×2 (01:00→07:35)
[2019-02-06 01:15] VITALS: BP_SYST 118
[2019-02-06 08:07] VITALS: BP_SYST 99
[2019-02-06] MEDS: MEMANTINE HCL 5 MG TABLET PO SCH (08:48)
[2019-02-06] MEDS: LISINOPRIL 20 MG TABLET PO SCH (08:48)
[2019-02-06] MEDS: FAMOTIDINE 20 MG TABLET PO SCH (08:48)
[2019-02-06] MEDS: ENOXAPARIN SODIUM 40 MG/0.4 ML SYRINGE SUBCUT SCH (08:49)
[2019-02-06] MEDS: KCL 20 mEq in D5/0.45NS 1000mL 1,000 ML IV SCH (11:07)
[2019-02-06 11:32] VITALS: BP_SYST 113
[2019-02-06 15:09] VITALS: BP_SYST 115
[2019-02-06 15:36] VITALS: BP_SYST 115
[2019-02-06] MEDS ORDERED: AZIT500V2 IV (16:20)
[2019-02-06] MEDS ORDERED: ROCPM1 IV (16:20)
== END 2019-02-06 17:30 | DRG 178 ==
LOC: SED 11:29 → STU 16:02 → SMU 02-05 15:13
PROVIDERS: ADMIT Family Medicine; ATTEND Family Medicine
DX: J69.0 Pneumonitis due to inhalation of food and vomit (principal); G93.49 Other encephalopathy; K21.9 Gastro-esophageal reflux disease without esophagitis; G40.909 Epilepsy, unspecified, not intractable, without status epilepticus; I10 Essential (primary) hypertension; Z86.73 Personal history of transient ischemic attack (TIA), and cerebral infarction without residual deficits; Z79.899 Other long term (current) drug therapy
CPT/HCPCS: 36415; 71045; 80048; 80053; 81003; 83605; 83880; 84484; 85025; 85379; 85610-TC; 85730-TC; 87081; 94640; 94760; 96361; 96365; 99285; G0378; J0456; J0696; J1650; J3370; J7050; J7060; J7612; J7620